=== PATIENT | female | born 1970 | race Caucasian/White ===

== ENCOUNTER → 2016-12-03 | Outpatient (CLI) | payer OTHER ==
[2016-12-03 17:59] LABS: Basophils % (A) 1 %; CH 30.2; CHCM 33.6; Eosinophils # (A) 0.2 k/uL (0-0.7); Eosinophils % (A) 3 %; HCT 38.7 % (34.0-46.0); HDW 2.67; Luc # (Auto) 0.25; Luc % (Auto) 3; Lymphocytes # (A) 2.1 k/uL (1.0-4.8); Lymphocytes % (A) 26 %; MCH 30.4 pg (25.0-35.0); MCHC 33.7 g/dL (31.0-37.0); MCV 90.3 fL (80.0-100.0); Mean Platelet Volume 6.4; Monocytes # (A) 0.6 k/uL (0-1.0); Monocytes % (A) 7 %; Neutrophils # (A) 4.9 k/uL (1.3-7.7); Neutrophils % (A) 61 %; RBC 4.29 m/uL (3.80-5.40); RDW 12.2 % (11.5-15.5); WBC (Perox) 8.08
== END | disposition home or self-care (01) ==
LOC: LABWHC1 17:15
PROVIDERS: ATTEND Obstetrics & Gynecology
DX: Z01.818 Encounter for other preprocedural examination (principal); N92.0 Excessive and frequent menstruation with regular cycle
CPT/HCPCS: 36415; 85025

== ENCOUNTER 2016-12-07 07:13 | Day surgery (SDC) | payer OTHER ==
[2016-12-07] MEDS ORDERED: LACTATED RINGERS 1,000 ML IV SCH ×2 (08:01→09:15)
[2016-12-07] MEDS ORDERED: LIDOCAINE 1% 20 ML VIAL (10MG/ML) FOR IV START INTRADERMA ONE (08:08)
[2016-12-07] MEDS ORDERED: DEXAMETHASONE SOD PHOSPHATE 10 MG/ML 1 ML VIAL IV ONE (08:09)
[2016-12-07] MEDS ORDERED: ONDANSETRON 4 MG/2 ML VIAL IVP ONE (08:10)
[2016-12-07] MEDS ORDERED: MIDAZOLAM 2 MG/2 ML VIAL ONE (08:43)
[2016-12-07] MEDS ORDERED: fentaNYL (PF) 50 MCG/ML 2 ML AMP ONE (08:43)
[2016-12-07] MEDS ORDERED: PROPOFOL 10 MG/ML 20 ML VIAL IV ONE (08:43)
[2016-12-07] MEDS ORDERED: LIDOCAINE 1% INJ 10MG/ML (20 ML MDV) ONE (08:43)
[2016-12-07] MEDS ORDERED: KETOROLAC 30 MG/ML 1 ML VIAL ONE (08:43)
[2016-12-07] MEDS ORDERED: diphenhydrAMINE 50 MG/ML 1 ML VIAL IVP PRN (09:10)
[2016-12-07] MEDS ORDERED: Acetaminophen-Codeine 300-30mg TAB PO PRN ×2 (09:10)
[2016-12-07] MEDS ORDERED: KETOROLAC 30 MG/ML 1 ML VIAL IVP PRN (09:10)
[2016-12-07] MEDS ORDERED: SIMETHICONE 80 MG CHEWABLE PO PRN (09:10)
[2016-12-07] MEDS ORDERED: METOCLOPRAMIDE 5 MG/ML 2 ML VIAL IVP PRN (09:10)
[2016-12-07] MEDS ORDERED: IBUPROFEN 600 MG TAB PO PRN (09:10)
[2016-12-07] MEDS ORDERED: ONDANSETRON 4 MG/2 ML VIAL IVP PRN (09:10)
[2016-12-07 09:17] VITALS: TEMP 97.2
--- NOTE | 2016-12-07 09:17 | P.OP ---
Date of Procedure: 12/07/16 Preoperative Diagnosis: #1. Menorrhagia Postoperative Diagnosis: Same Procedure(s) Performed: #1. Diagnostic hysteroscopy #2. NovaSure endometrial ablation Anesthesia: other (Gen. by facemask) Surgeon: Raymond Thibodeaux Estimated Blood Loss (ml): 5 IV fluids (ml): 250 Urine output (ml): 50 Pathology: none sent Condition: stable Disposition: PACU Operative Findings: Preoperative pelvic examination demonstrated a roughly 5 week anteverted mobile normal shaped uterus with normal adnexa bilaterally. Intraoperatively, the uterus sounded to 9 cm while the cervix measured approximate 4 cm. The settings for the NovaSure tool for a length of 5 cm, a width of 4 cm, a total power 110 W. A total run time of 103 seconds was carried out after which time the base unit read "procedure complete." The postprocedural result appeared to be excellent. She is a candidate for vaginal hysterectomy should it become necessary. Description of Procedure: The patient was prepped and draped in usual fashion after general anesthesia was administered by the anesthesiologist. A weighted speculum was placed and the anterior lip of the cervix was grasped with a single-tooth tenaculum after draining the bladder of approximately 50 mL of clear ondina urine. The uterus was sounded to 9 cm and the cervix to 4 cm as noted above. Serial dilation was carried out to admit the diagnostic hysteroscope. The hysteroscopic findings were able to identify the bilateral tubal ostia and there was no apparent pathology throughout the endometrial cavity. Once adequate hysteroscopy had been carried out, the scope was set aside and further dilation carried out to admit the NovaSure tool. The 2 was placed to the fundus of the uterus and seated well. The settings for the tool were as noted above. The cervix was sealed with the flange on the tool and the cavity check attempted and passed without difficulty. The tool was enabled and the run was started. After a total run time of 103 seconds, the base unit read "procedure complete.". The tool was closed, removed, and discarded. The diagnostic hysteroscope was replaced and the result appeared to be excellent. All instrumentation was removed. One tenaculum site was noted to be bleeding was made hemostatic with pressure. Estimated blood loss for the case was less than 5 mL. There were no complications. All sponge, instrument, and needle counts were correct. The patient tolerated the procedure well and proceeded to the recovery room in stable condition.
[2016-12-07] MEDS: HYDROmorphone 1 MG/ML 1 ML SYRINGE IVP ONE ×4 (09:27→09:48)
[2016-12-07] MEDS ORDERED: PROMETHAZINE INJ 25 MG/ML 1 ML VIAL IVP NR (11:00)
[2016-12-07 11:07] VITALS: RESP 16
[2016-12-07 12:09] VITALS: BP 106/73; PULSE 76
== END 2016-12-07 13:20 | disposition home or self-care (01) ==
LOC: OR 07:13
PROVIDERS: ATTEND Obstetrics & Gynecology
DX: N92.0 Excessive and frequent menstruation with regular cycle (principal); Z79.1 Long term (current) use of non-steroidal anti-inflammatories (NSAID); Z79.891 Long term (current) use of opiate analgesic; Z79.899 Other long term (current) drug therapy; Z87.891 Personal history of nicotine dependence
CPT/HCPCS: 84132; 58563; J2250; J1100; J2550; J2405; J2001; J3010; J1885; J1170; J2704

== ENCOUNTER → 2017-04-15 | Outpatient (CLI) | payer OTHER ==
[2017-04-15 11:02] LABS: Basophils # (A) 0.1 k/uL (0-0.2); Basophils % (A) 1 %; CH 29.6; CHCM 33.3; Eosinophils # (A) 0.2 k/uL (0-0.7); Eosinophils % (A) 2 %; HDW 2.52; HGB 14.2 gm/dL (11.4-16.0); Luc % (Auto) 3; Lymphocytes # (A) 1.9 k/uL (1.0-4.8); Lymphocytes % (A) 25 %; MCH 30.3 pg (25.0-35.0); MCHC 33.9 g/dL (31.0-37.0); MCV 89.4 fL (80.0-100.0); Mean Platelet Volume 6.4; Monocytes # (A) 0.4 k/uL (0-1.0); Monocytes % (A) 6 %; Neutrophils # (A) 4.9 k/uL (1.3-7.7); Neutrophils % (A) 64 %; RDW 12.7 % (11.5-15.5); WBC 7.6 k/uL (3.8-10.6); WBC (Perox) 7.85
[2017-04-15 11:12] LABS: Anion Gap 8 mmol/L; Blood Urea Nitrogen 10 mg/dL (7-17); Carbon Dioxide 29 mmol/L (22-30); Chloride 104 mmol/L (98-107); Glucose 89 mg/dL (74-99); Non-African American GFR(MDRD) >60 (>60 ml/min/1.73 sqM); Sodium 141 mmol/L (137-145)
[2017-04-15 11:19] LABS: Appearance,Urine Clear (Clear); Bilirubin,Urine Negative (Negative); Glucose,Urine (UA) Negative (Negative); Ketones,Urine Negative (Negative); Leukocyte Esterase,Urine Negative (Negative); Nitrite,Urine Negative (Negative); Protein,Urine Negative (Negative); Specific Gravity,Urine 1.003 (1.001-1.035); UA Billing (MACRO vs. MICRO) CHEM; Urobilinogen,Urine <2.0 mg/dL (<2.0)
== END | disposition home or self-care (01) ==
LOC: LABPAT 10:37
PROVIDERS: ATTEND Obstetrics & Gynecology
DX: Z01.812 Encounter for preprocedural laboratory examination (principal); N93.8 Other specified abnormal uterine and vaginal bleeding; N94.6 Dysmenorrhea, unspecified
CPT/HCPCS: 80051; 81003; 82565; 82947; 84520; 85025

== ENCOUNTER 2017-04-20 07:27 | Inpatient (IN) | payer OTHER ==
[2017-04-12 11:25] VITALS: BMI 30.1
--- NOTE | 2017-04-19 21:49 | HP ---
HISTORY OF PRESENT ILLNESS: Hannah is a 46 year old, 10, para 3, 4, 3, 6 who presented to the office with history of long standing issues of having irregular cycles as well as dysmenorrhea. She had a NovaSure endometrial ablation performed approximately four months ago, and since that time, continues to have bleeding through the procedure though it has significantly improved but not intractable and severe dysmenorrhea is present with the bleeding primarily and this is consistent with possibility of adenomyosis. The patient is not interested in child bearing and has had a tubal ligation in the past and has requested definitive treatment with hysterectomy. Her previous examinations have made her an obvious candidate for vaginal approach. PAST MEDICAL HISTORY: no significant history. SURGICAL HISTORY: Significant for placement of cervical cerclage on at least three separate occasions. She additionally had D&C for both elective and spontaneous AB. She has had hysteroscopy with NovaSure endometrial ablation in November 2016. She has had bilateral knee arthroscopy and then she underwent tubal ligation with Filshie clips as well. There were no anesthetic complications. OBSTETRICAL HISTORY: 10, para 3, 4, 3, 6 with three term vaginal deliveries, two of which required cerclage. She additionally had three 36 week deliveries with cerclage. .She additionally has had two miscarriages requiring D&C and one elective interruption of as well as a delivery that did not survive secondary to maturity. Method of contraception is tubal ligation. Again gynecological history is unremarkable with no history of any infections to include STDs. The remainder of her gynecological history is confined to the history of present illness. Family history is noncontributory. Social history: The patient is and is a nonsmoker though she did smoke in the past. She reports occasional alcohol, and denies any other social concerns. Current medications: 1. Cyclobenzaprine 10 mg twice day. 2. Hydrochlorothiazide 0.5 mg daily. 3. Motrin. 4. Homeland prn. 5. Xanax 1 mg prn. ALLERGIES: No known drug allergies. Review of systems is confined to history of present illness. PHYSICAL EXAMINATION: In general, this is a well developed, well nourished white female in no acute distress. HEENT: demonstrates PERRLA, EOMI, her oropharynx is clear. Neck is supple without adenopathy. Thyroid is normal to palpation. Her heart has regular rhythm and rate without murmur. Her lungs are clear to auscultation bilaterally in all pacheco. Her abdomen is nondistended and has normal active bowel sounds, is soft, nontender, without any palpable masses. Hepatosplenomegaly without any hernias. Her extremities without cyanosis, clubbing or edema and are nontender to palpation bilaterally. Bimanual pelvic examination demonstrates normal external genitalia and BUS with normal vaginal mucosa and cervix. There is no cervical motion tenderness. Uterus is approximately five weeks in size, anteverted, mobile, nontender and normal shaped uterus. There is adequate descensus for vaginal hysterectomy present. The adnexa are normal and nontender and without mass bilaterally. ASSESSMENT AND PLAN: Severe dysmenorrhea as well as functional uterine bleeding , failed endometrial ablation: We discussed other potential interventions but the patient has requested definitive therapy with hysterectomy. She is a candidate for a vaginal approach. The risks and complications of vaginal hysterectomy were thoroughly discussed including the risk of bleeding, bleeding requiring transfusion, infection, and injury to local structures to specifically include the bowel, bladder and ureters. I also discussed the typical hospital and postoperative courses. She understood all of these concerns and agrees to proceed. We are scheduled for vaginal hysterectomy on the morning of April 20, 2017. SEBASTIEN
[~2017-04-20 07:27] MED LIST: DEXAMETHASONE SOD PHOSPHATE 10 MG/ML 1 ML VIAL IV ONE; LIDOCAINE 1% 20 ML VIAL (10MG/ML) FOR IV START INTRADERMA PRN; ONDANSETRON 4 MG/2 ML VIAL IVP ONE; SCOPOLAMINE 1.5MG/72HR PATCH TRANSDERM ONE; ceFAZolin 2 GM in SODIUM CHLORIDE 0.9% 100 ML IVPB ONE
[2017-04-20] MEDS: LACTATED RINGERS 1,000 ML IV SCH ×3 (07:58→11:11)
[2017-04-20] MEDS ORDERED: MIDAZOLAM 2 MG/2 ML VIAL IVP ONE (08:36)
[2017-04-20] MEDS ORDERED: GLYCOPYRROLATE 0.2 MG/ML 2 ML VIAL ONE (09:22)
[2017-04-20] MEDS ORDERED: MIDAZOLAM 2 MG/2 ML VIAL ONE (09:22)
[2017-04-20] MEDS ORDERED: HYDROmorphone (PF) 1 MG/ML ONE (09:22)
[2017-04-20] MEDS ORDERED: NEOSTIGMINE 1 MG/ML 10 ML VIAL ONE (09:22)
[2017-04-20] MEDS ORDERED: SUCCINYLCHOLINE CHLORIDE 100 MG/5 ML SYR IV ONE (09:22)
[2017-04-20] MEDS ORDERED: PROPOFOL 10 MG/ML 20 ML VIAL IV ONE (09:22)
[2017-04-20] MEDS ORDERED: ROCURONIUM BROMIDE 10 MG/ML 10 ML VIAL IV ONE (09:22)
[2017-04-20] MEDS ORDERED: fentaNYL (PF) 50 MCG/ML 2 ML AMP ONE (09:22)
[2017-04-20] MEDS ORDERED: LIDOCAINE 1% INJ 10MG/ML (20 ML MDV) ONE (09:22)
[2017-04-20] MEDS ORDERED: diphenhydrAMINE 50 MG/ML 1 ML VIAL IVP PRN (09:30)
[2017-04-20] MEDS ORDERED: IBUPROFEN 600 MG TAB PO PRN (09:30)
[2017-04-20] MEDS ORDERED: SIMETHICONE 80 MG CHEWABLE PO PRN (09:30)
[2017-04-20] MEDS ORDERED: Acetaminophen-Codeine 300-30mg TAB PO PRN ×2 (09:30)
[2017-04-20] MEDS ORDERED: HYDROmorphone PCA 5 MG/25 ML SYRINGE IV PRN (09:33)
[2017-04-20] MEDS ORDERED: NALOXONE 0.4 MG/ML 1 ML VIAL IV PRN (09:33)
[2017-04-20] MEDS ORDERED: VASOPRESSIN 20 UNIT/ML 1 ML VIAL SQ ONE (09:51)
[2017-04-20] MEDS ORDERED: BACITRACIN 500 UNIT/GM OINT 28.4 GM TUBE TOPICAL ONE (09:51)
--- NOTE | 2017-04-20 10:29 | P.OP ---
Date of Procedure: 04/20/17 Preoperative Diagnosis: #1. Severe dysmenorrhea #2. Dysfunctional uterine bleeding #3. Failed endometrial ablation Postoperative Diagnosis: Same Procedure(s) Performed: #1. Vaginal hysterectomy Implants: Anesthesia: JASON Surgeon: Raymond Thibodeaux Movie Star #1: Taty Gutierrez Estimated Blood Loss (ml): 50 IV fluids (ml): 650 Urine output (ml): 200 Pathology: other (Uterus) Condition: stable Disposition: PACU Indications for Procedure: Operative Findings: Preoperative pelvic examination confirmed an essentially normal shaped uterus though there was less descensus than initially appreciated in the office. Intraoperatively, the bilateral tubes and ovaries were normal and a Filshie clip was seen on each fallopian tube. There was a roughly 2-3 cm left ovarian cyst which was benign in nature and left alone. The capsule of the left ovary was bleeding slightly was cauterized intraoperatively. Description of Procedure: The patient was prepped and draped in usual fashion after general endotracheal anesthesia was administered by the anesthesiologist. A weighted speculum was placed and the cervix grasped with a double-tooth tenaculum. The bladder was drained of approximately 200 cc of clear ondina urine. The cervicovaginal mucosa was infused with diluted vasopressin solution. It was then opened at the cervicovaginal junction sharply with a scalpel. Blunt and sharp dissection utilized to sweep it further back. The posterior cul-de-sac was identified and incised sharply with the Dobbins scissors. A stitch of 2-0 Vicryl was placed for later use. The short weighted speculum was replaced with a long weighted speculum. Once adequate dissection of the mucosa had been carried out, the uterosacral ligament were clamped with curved Wes-Iola clamps, cut, and suture-ligated with a transfixion stitch of 0 Vicryl. Serial bites were taken up the cardinal ligament towards the utero-ovarian pedicles on each side using curved Avis Iola clamps. Each was cut and suture-ligated with a transfixion stitch of 0 Vicryl. After several bites on either side, the uterus was inverted posteriorly and the anterior peritoneum identified and opened sharply. This allowed isolation of the utero-ovarian pedicle on each side. Each was clamped with a curved Wes-Iola clamp, cut, and suture-ligated with a transfixion stitch of 0 Vicryl followed by a free tie of 0 Vicryl. Each was carefully examined with no ongoing bleeding prior to its release. The left ovary was visible within the field with a roughly 2-3 cm deflated cyst present. The capsule over the cyst was some slightly opened then bleeding. It was made hemostatic with the Bovie. The right ovary was entirely normal to inspection. The bilateral Filshie clips were seen on each tube. The long weighted speculum was then replaced the short weighted speculum. The previously placed stitch of 2-0 Vicryl was utilized to close the parietal peritoneum in a pursestring stitch. The pedicles were examined and found to be hemostatic. The uterosacral ligament was were passed through each other contralaterally and the vaginal mucosa in a modified Mendez's culdoplasty and firmly tied down. The intervening open vaginal mucosa was closed with interrupted [id number] stitches of 0 Vicryl. Any small points of bleeding or exposed subcutaneous tissues were cauterized to keep granulation tissue from forming. Hemostasis appeared excellent. The Jolly catheter was then placed demonstrating clear ondina urine. The vagina was packed with one-inch iodophor gauze covered with bacitracin ointment. All instrumentation was then removed. Estimated blood loss for the entire case was approximately 50 mL. All sponge, instrument, and needle counts were correct. There were no complications. The patient tolerated the procedure well and proceeded to the recovery room in stable condition.
[2017-04-20] MEDS: KETOROLAC 30 MG/ML 1 ML VIAL IVP PRN ×2 (11:00→18:45)
[2017-04-20] MEDS: HYDROmorphone 1 MG/ML 1 ML SYRINGE IVP PRN ×4 (11:00→11:23)
[2017-04-20] MEDS: ONDANSETRON 4 MG/2 ML VIAL IVP PRN ×2 (13:18→21:19)
[2017-04-20] MEDS: METOCLOPRAMIDE 5 MG/ML 2 ML VIAL IVP PRN (18:46)
[2017-04-21] MEDS: SENNOSIDES-DOCUSATE SODIUM 1 EACH TAB PO SCH ×3 (00:13→20:52)
[2017-04-21] MEDS: KETOROLAC 30 MG/ML 1 ML VIAL IVP PRN (01:59)
[2017-04-21] MEDS ORDERED: RX INFO: IV CONTRAST WAS GIVEN 1 EACH MISC MISCELLANE PRN ×2 (02:34→15:28)
[2017-04-21] MEDS ORDERED: ACETAMINOPHEN IV (For NPO) 1,000 MG in EMPTY BAG 1 BAG IVPB ONE (03:04)
[2017-04-21 03:06] LABS: Basophils % (A) 0 %; CH 29.4; CHCM 32.9; Eosinophils % (A) 0 %; HCT 28.3 % (34.0-46.0); HDW 2.58; Luc # (Auto) 0.14; Luc % (Auto) 1; Lymphocytes # (A) 1.1 k/uL (1.0-4.8); Lymphocytes % (A) 6 %; MCH 29.6 pg (25.0-35.0); MCHC 32.9 g/dL (31.0-37.0); MCV 89.9 fL (80.0-100.0); Mean Platelet Volume 6.6; Monocytes # (A) 1.2 k/uL (0-1.0); Monocytes % (A) 7 %; Neutrophils # (A) 15.6 k/uL (1.3-7.7); Neutrophils % (A) 86 %; RBC 3.15 m/uL (3.80-5.40); RDW 12.8 % (11.5-15.5); WBC 18.1 k/uL (3.8-10.6); WBC (Perox) 19.42
[2017-04-21 03:09] LABS: HGB 9.3 gm/dL (11.4-16.0)
[2017-04-21 03:15] LABS: INR 1.1 (<1.2); Prothrombin Time 10.9 sec (9.0-12.0)
[2017-04-21 03:17] LABS: ALT 21 U/L (9-52); AST 17 U/L (14-36); Alkaline Phosphatase 41 U/L (38-126); Anion Gap 10 mmol/L; Blood Urea Nitrogen 19 mg/dL (7-17); Calcium 8.4 mg/dL (8.4-10.2); Carbon Dioxide 21 mmol/L (22-30); Chloride 103 mmol/L (98-107); Glucose 159 mg/dL (74-99); Non-African American GFR(MDRD) >60 (>60 ml/min/1.73 sqM); Potassium 4.8 mmol/L (3.5-5.1); Sodium 134 mmol/L (137-145); Total Bilirubin 0.4 mg/dL (0.2-1.3); Total Protein 5.5 g/dL (6.3-8.2)
[2017-04-21] MEDS ORDERED: SODIUM CHLORIDE 0.9% 1,000 ML IV ONE ×3 (04:14→09:47)
[2017-04-21] MEDS: SODIUM CHLORIDE 0.9% 1,000 ML IV SCH ×2 (04:42→12:15)
--- NOTE | 2017-04-21 04:44 | CT ---
EXAM: CT Angiography Chest With Intravenous Contrast CLINICAL HISTORY: Reason: r/o PE TECHNIQUE: Axial computed tomographic angiography images of the chest with intravenous contrast using pulmonary embolism protocol. CTDI is 66.6 mGy and DLP is 420.00 mGy-cm. This CT exam was performed using one or more of the following dose reduction techniques: automated exposure control, adjustment of the mA and/or kV according to patient size, and/or use of iterative reconstruction technique. MIP reconstructed images were created and reviewed. COMPARISON: No relevant prior studies available. FINDINGS: Pulmonary arteries: Unremarkable. No definitive evidence of pulmonary embolism. Aorta: No acute findings. No thoracic aortic aneurysm. Lungs: Small bilateral pleural effusions are seen resulting in compressive atelectasis of the both lower lobes. Linear atelectatic changes are also seen involving both lower lobes. Cannot definitively exclude the possibility of superimposed infection. No mass. Pleural space: See above. Heart: Unremarkable. No cardiomegaly. No significant pericardial effusion. No evidence of RV dysfunction. Bones/joints: No acute fracture. No dislocation. Soft tissues: Unremarkable. Lymph nodes: Unremarkable. No enlarged lymph nodes. Intraperitoneal space: Small/moderate amount of ascites is visualized in the upper abdomen. IMPRESSION: 1. Small bilateral pleural effusions are seen resulting in compressive atelectasis of the both lower lobes. Linear atelectatic changes are also seen involving both lower lobes. Cannot definitively exclude the possibility of superimposed infection. Clinical correlation recommended. 2. Small/moderate amount of ascites is visualized in the upper abdomen. 3. No definitive evidence of pulmonary embolism in this setting.
--- NOTE | 2017-04-21 04:56 | US ---
EXAM: US Duplex Bilateral Lower Extremity Veins CLINICAL HISTORY: Reason: r/o DVT TECHNIQUE: Real-time ultrasound scan of the veins of the bilateral lower extremities with color Doppler flow, spectral waveform analysis and compression. COMPARISON: No relevant prior studies available. FINDINGS: Right deep veins: Unremarkable. No DVT in the right common femoral, femoral, proximal deep femoral or popliteal veins. The veins are compressible with normal color flow and augmentation. Right superficial veins: Unremarkable. No thrombus in the visualized right great saphenous vein. Left deep veins: Unremarkable. No DVT in the left common femoral, femoral, proximal deep femoral or popliteal veins. The veins are compressible with normal color flow and augmentation. Left superficial veins: Unremarkable. No thrombus in the visualized left great saphenous vein. Soft tissues: No acute findings. No popliteal cyst. IMPRESSION: Normal bilateral lower extremity duplex venous ultrasound.
[2017-04-21] MEDS ORDERED: ONDANSETRON 4 MG/2 ML VIAL IVP PRN (05:06)
[2017-04-21] MEDS: MORPHINE SULFATE 2 MG/ML SYRINGE IVP PRN ×2 (05:21→07:54)
[2017-04-21] MEDS: LACTATED RINGERS 1,000 ML IV SCH ×3 (05:40→16:33)
[2017-04-21] MEDS ORDERED: HYDROcodone/APAP 5-325MG 1 EACH TAB PO PRN (05:50)
[2017-04-21] MEDS: ALPRAZolam 0.5 MG TAB PO PRN (06:09)
[2017-04-21] MEDS: METOCLOPRAMIDE 5 MG/ML 2 ML VIAL IVP PRN ×3 (06:09→21:57)
[2017-04-21] MEDS ORDERED: MORPHINE PCA 30 MG/30 ML SYRINGE IV PRN (08:47)
--- NOTE | 2017-04-21 08:53 | P.PN ---
Subjective Ports significant abdominal pain, primarily in the upper bilateral quadrants which makes it difficult for her to take a deep breath. She has undergone testing for PE which was negative. She denies flatus at this time and has not been up or active yet. She also reports that she feels the Dilaudid is creating nausea as does most oral narcotic pain medication. She reports that she has done well on IV morphine in the past. Objective - Vital Signs Vital signs: Vital Signs Temp 97.4 F L 04/21/17 07:51 Pulse 98 04/21/17 07:51 Resp 16 04/21/17 07:51 BP 123/57 04/21/17 07:51 Pulse Ox 100 04/21/17 07:51 Intake & Output 04/20/17 04/21/17 04/21/17 18:59 06:59 18:59 Intake Total 1125 1600 Output Total 650 300 Balance 475 1300 Intake: IV 1125 Intake, IV Titration 1200 Amount Sodium Chloride 0.9% 1, 200 000 ml @ 100 mls/hr IV . Q10H KIMBERLY Rx#:[id number] Sodium Chloride 0.9% 1, 1000 000 ml @ 999 mls/hr IV . Q1H1M ONE Rx#:[id number] Oral 400 Output: Urine 600 300 Estimated Blood Loss 50 Other: Voiding Method Indwelling Catheter Indwelling Catheter - Exam In general, this is a well-developed well-nourished white female in some discomfort. Her abdomen is nondistended, soft, with moderate bilateral upper quadrant abdominal tenderness and less tenderness and the bilateral lower quadrants. Her extremities are without any cyanosis, clubbing, or edema and are nontender to palpation. - Labs CBC & Chem 7: 04/21/17 02:46 04/21/17 02:46 Labs: Abnormal Lab Results - Last 24 Hours (Table) 04/21/17 04/21/17 04/21/17 Range/Units 02:46 02:46 02:46 WBC 18.1 H (3.8-10.6) k/uL RBC 3.15 L (3.80-5.40) m/uL Hgb 9.3 L D (11.4-16.0) gm/dL Hct 28.3 L (34.0-46.0) % Neutrophils # 15.6 H (1.3-7.7) k/uL Monocytes # 1.2 H (0-1.0) k/uL D-Dimer 0.71 H (<0.60) mg/L FEU Sodium 134 L (137-145) mmol/L Carbon Dioxide 21 L (22-30) mmol/L BUN 19 H (7-17) mg/dL Glucose 159 H (74-99) mg/dL Plasma Lactic Acid Beau (0.7-2.0) mmol/L Total Protein 5.5 L (6.3-8.2) g/dL Albumin 3.4 L (3.5-5.0) g/dL 04/21/17 04/21/17 Range/Units 02:50 06:25 WBC (3.8-10.6) k/uL RBC (3.80-5.40) m/uL Hgb (11.4-16.0) gm/dL Hct (34.0-46.0) % Neutrophils # (1.3-7.7) k/uL Monocytes # (0-1.0) k/uL D-Dimer (<0.60) mg/L FEU Sodium (137-145) mmol/L Carbon Dioxide (22-30) mmol/L BUN (7-17) mg/dL Glucose (74-99) mg/dL Plasma Lactic Acid Beau 2.6 H* 2.3 H* (0.7-2.0) mmol/L Total Protein (6.3-8.2) g/dL Albumin (3.5-5.0) g/dL Assessment and Plan (1) Dysfunctional uterine bleeding Status: Acute (2) Dysmenorrhea Status: Acute Plan: The pain the patient is reporting is consistent with possible abdominal wall muscle strain but is somewhat unclear. In either case, I will discontinue her Dilaudid PRICING LEAD in favor of a morphine PRICING LEAD. We will continue with clear liquids at this time await flatus to advance diet. A consultation with general medicine has been called to evaluate for other potential medical concerns. I did also add Xanax as the patient apparently takes this at home on occasion though at this time she denies any significant anxiety. Repeat CBC will be ordered for the morning as well.
--- NOTE | 2017-04-21 12:25 | P.CONS ---
History of Present Illness - Reason for Consult Consult date: 04/21/17 medical management of abd pain Requesting physician: Raymond Thibodeaux - Chief Complaint Diffuse abd pain post op - History of Present Illness 46-year-old female with no significant past medical history she presented to the hospital for an elective vaginal hysterectomy. Patient had long standing history of irregular menstrual cycle and dysmenorrhea. She underwent endometrial ablation back in November 2016 however since that time she continued to have vaginal bleeding which was suspicious for adenomyosis. Patient was further evaluated by her [employer] doctor and they both agreed on hysterectomy as the patient has expressed no interest in having more kids. Patient is seen today postoperative day #1 post vaginal approach hysterectomy which she tolerated well, however medical consult was requested due to persistent abdominal pain. Patient reports diffuse abdominal pain mainly epigastric described it as sharp 10 out of 10 in severity continuous pain aggravated by movement and deep breaths associated with nausea but no vomiting, however she feels that the nausea was due to IV Dilaudid. She reports no similar pain in the past. She denies any cough, chest pain, or shortness of breath however she is experiencing shallow breaths due to fear of pain in her belly. Patient denies any GI bleeding, coffee-ground vomiting, she reports that she has not passed bowel movement yet. She has a Jolly catheter which is draining clear yellow urine. Patient otherwise denying any dizziness or headaches changes in her vision or hearing however she feels generalized fatigue and tiredness. Patient has not been up and moving at and being confined to bed since the post surgery. Patient continues to have clear liquids by mouth and tolerating that well however she reports poor appetite. She denies any history of liver disease, pancreatic problems, peptic ulcer disease, denies any pneumonia symptoms of coughing or pleuritic chest pain. Denies any fevers or chills. In the postoperative period due to her experiencing some shallow breaths and pleuritic chest pain earlier a d-dimer was performed which came back positive upon which CT angiogram chest was done which was negative for any pulmonary embolism however suggested bilateral minimal pleural effusion and some and suggested some minimal ascites in the upper abdomen bilaterally, venous duplex ultrasound of the lower extremities was performed and showed no evidence of acute DVT. Patient currently reports that the pain is controlled with morphine, she is receiving IV fluid and tolerating clear liquids. Review of Systems Pertinent positives as noted in HPI. All other systems were reviewed and are negative Past Medical History Past Medical History: Cancer Additional Past Medical History / Comment(s): HAVING SPOTTING AND CRAMPING SINCE ABLATION, HX OF CERVICAL CA post LEEP , STATES TAKES HCTZ FOR BLOATING NO HTN ISSUES, Gestational diabetes History of Any Multi-Drug Resistant Organisms: None Reported Past Surgical History: Orthopedic Surgery, Tubal Ligation Additional Past Surgical History / Comment(s): KNEE ARTHROSCOPY; MULTIPLE CIRCLAGE; ABLATION WITH NOVASURE Past Anesthesia/Blood Transfusion Reactions: No Reported Reaction Past Psychological History: No Psychological Hx Reported Smoking Status: Former smoker Past Alcohol Use History: Occasional Additional Past Alcohol Use History / Comment(s): QUIT SMOKING 2005, SMOKED 1PPD FROM TEENS Past Drug Use History: None Reported - Past Family History Mother Family Medical History: No Reported History Additional Family Medical History / Comment(s): grandmother with skin cancer, grandfather with heart disease Medications and Allergies Home Medications and Allergies Comment(s): Reviewed Home Medications Medication Instructions Recorded Confirmed Type Hydrochlorothiazide [Hydrodiuril] 12.5 mg PO DAILY 12/07/16 04/21/17 History Ibuprofen [Motrin] 800 mg PO Q8HR PRN 12/07/16 04/21/17 History Vitamin E 1,000 unit PO DAILY 12/07/16 04/21/17 History Allergies Allergy/AdvReac Type Severity Reaction Status Date / Time SURGICAL SCRUB Allergy Rash/Hives Uncoded 04/20/17 15:30 Physical Exam Vitals: Vital Signs Temp Pulse Resp BP BP Pulse Ox 04/21/17 07:51 97.4 F L 98 16 123/57 100 04/21/17 06:00 97.8 F 103 H 16 119/60 99 04/21/17 04:15 97.4 F L 109 H 128/64 100 04/21/17 02:42 101 H 24 135/58 100 04/21/17 02:25 102 H 24 124/56 100 04/21/17 00:05 97.3 F L 88 18 127/69 100 04/21/17 00:00 88 20 04/20/17 20:25 96.9 F L 88 20 112/62 100 04/20/17 19:47 80 16 04/20/17 16:25 97.4 F L 84 16 100 04/20/17 15:25 79 16 91/51 99 04/20/17 14:25 93 18 88/54 100 04/20/17 13:25 90 18 90/52 99 04/20/17 12:55 78 18 118/67 99 04/20/17 12:25 68 18 110/58 99 04/20/17 12:22 98 04/20/17 12:10 67 18 110/73 99 04/20/17 11:55 79 19 103/64 100 04/20/17 11:40 98.6 F 50 L 19 111/62 100 04/20/17 11:15 81 16 122/65 998 H Intake and Output 04/20/17 04/21/17 04/21/17 22:59 06:59 14:59 Intake Total 400 1200 120 Output Total 300 200 Balance 100 1000 120 Intake: Intake, IV Titration 1200 Amount Sodium Chloride 0.9% 1, 200 000 ml @ 100 mls/hr IV . Q10H [facility] Rx#:[id number] Sodium Chloride 0.9% 1, 1000 000 ml @ 999 mls/hr IV . Q1H1M ONE Rx#:[id number] Oral 400 120 Output: Urine 300 200 Other: Voiding Method Indwelling Catheter Indwelling Catheter Indwelling Catheter Constitutional: No acute distress, conversant, pleasant I can Eyes: Anicteric sclerae, moist conjunctiva, no lid-lag Pupils equal round reactive to light ENMT: NC/AT Oropharynx clear, no erythema, exudates Neck: Supple, FROM, no masses, or JVD No carotid bruits No thyromegaly Lungs: Clear to auscultation except for right lung base, which could be due to poor effort from the patient due to abd pain vs the minimal pleural effusion on that side Clear to percussion No accessory muscle use, but poor effort and shallow breathing Cardiovascular: Heart regular in rate and rhythm, + Systolic murmur, No gallops, or rubs No peripheral edema Abdominal: Soft, but with voluntary guarding. tenderness to deep palpation and percussion throughout, no rebound tenderness, bowel sounds are positive Normoactive bowel sounds No hepatomegaly, No splenomegaly No palpable mass No abdominal wall hernia noted Skin: Normal temperature, tone, texture, turgor No induration No subcutaneous nodules No rash, lesions No ulcers Extremities: No digital cyanosis No clubbing Pedal pulses intact and symmetrical Radial pulses intact and symmetrical No calf tenderness , SCDs in place Psychiatric: Alert and oriented to person, place and time Appropriate affect fair judgment Neuro Muscles Strength grossly intact in all 4 extremities Sensation to light touch grossly present throughout Cranial nerves II-XII grossly intact No focal sensory deficits Lymphatics: no palpable cervical or supraclavicular , or inguinal lymph nodes Results Results: reviewed CBC & Chem 7: 04/21/17 16:21 04/21/17 13:42 Labs: Abnormal Lab Results - Last 24 Hours (Table) 04/21/17 04/21/17 04/21/17 Range/Units 02:46 02:46 02:46 WBC 18.1 H (3.8-10.6) k/uL RBC 3.15 L (3.80-5.40) m/uL Hgb 9.3 L D (11.4-16.0) gm/dL Hct 28.3 L (34.0-46.0) % Neutrophils # 15.6 H (1.3-7.7) k/uL Monocytes # 1.2 H (0-1.0) k/uL D-Dimer 0.71 H (<0.60) mg/L FEU Sodium 134 L (137-145) mmol/L Carbon Dioxide 21 L (22-30) mmol/L BUN 19 H (7-17) mg/dL Glucose 159 H (74-99) mg/dL Plasma Lactic Acid Beau (0.7-2.0) mmol/L Total Protein 5.5 L (6.3-8.2) g/dL Albumin 3.4 L (3.5-5.0) g/dL 04/21/17 04/21/17 Range/Units 02:50 06:25 WBC (3.8-10.6) k/uL RBC (3.80-5.40) m/uL Hgb (11.4-16.0) gm/dL Hct (34.0-46.0) % Neutrophils # (1.3-7.7) k/uL Monocytes # (0-1.0) k/uL D-Dimer (<0.60) mg/L FEU Sodium (137-145) mmol/L Carbon Dioxide (22-30) mmol/L BUN (7-17) mg/dL Glucose (74-99) mg/dL Plasma Lactic Acid Beau 2.6 H* 2.3 H* (0.7-2.0) mmol/L Total Protein (6.3-8.2) g/dL Albumin (3.5-5.0) g/dL Assessment and Plan (1) Abdominal pain Status: Acute (2) Postoperative anemia due to acute blood loss Status: Acute (3) Lactic acidosis Status: Acute (4) D-dimer, elevated Status: Acute (5) DVT prophylaxis Status: Acute (6) Hyperglycemia Status: Acute Plan: Abdominal pain is most likely secondary to postoperative however check acute abdominal series x-ray to rule out air leaks secondary to surgery Aggressive IV fluid hydration (give another bolus of NS and increase NS rate to 140 cc/hour) , recheck lactic acid levels, if this continues to rise I will consider computed tomography scan of the abdomen and pelvis with and without contrast rule out any vascular compromise Patient was encouraged to ambulate, will monitor for passing gases and bowel movement Patient encouraged to set up on a chair and use the incentive spirometer which will help with lung expansion pain control with morphine which patient tolerates better Postoperative anemia, check iron studies, patient with prolonged history of irregular menstrual bleed Elevated d-dimer most likely secondary to tissue injury from surgery, CT angiogram chest duplex venous ultrasound of lower extremities both negative Monitor liver and renal function in the morning continue to monitor hemoglobin levels Check A1c patient has history of gestational diabetes and currently with hyperglycemia, insulin sliding scale could be utilized and optimizing control of blood sugar DVT PPX with SCDs, consider pharmacologic DVT ppx when ok with psych patient reported being on HCTz for bloating without history of HTN. I agree with holding this medicine. Thank you for allowing us to participate in the care of this patient. We will follow up closely along with you. Do not hesitate to contact us with questions. Someone can be reached from the [facility] [place] hospitalist group at all hours of the day at [phone]. Interval evaluation around 1400 and 16:45 due to trending down hemoglobin and tachycardia. on exam patient was alert and awake, reports abd pain however she thinks its improving compared to before. I repeated stat hemoglobin to r/o hemodilution and showed even worse Hgb at 7.0 , I discussed the case with [employer] at bedside, and there is high possibility of small blood vessel oozing blood that could be self limited. will do close monitoring of hemoglobin, CT scan to r/o any retroperitoneal bleed , serial hemoglobin, type and cross match 2 units blood standby. if hemoglobin drops further , and /or vital signs becomes unstable, then transfuse blood, and [employer] will take patient back to OR in AM. RN was notified of the plan, patient and her family notified, questions answered and she verbalized understanding. 35 minutes were spent in critical care management for this complex patient with suspected internal bleed.
[2017-04-21] MEDS: INSULIN LISPRO (humaLOG) 300 UNIT/3 ML VIAL SQ SCH ×3 (12:33→20:52)
[2017-04-21 13:53] LABS: Basophils % (A) 0 %; CH 29.3; CHCM 32.7; Eosinophils # (A) 0.1 k/uL (0-0.7); Eosinophils % (A) 1 %; HCT 21.6 % (34.0-46.0); HDW 2.62; Luc # (Auto) 0.19; Luc % (Auto) 2; Lymphocytes # (A) 2.1 k/uL (1.0-4.8); Lymphocytes % (A) 16 %; MCH 30.4 pg (25.0-35.0); MCHC 33.8 g/dL (31.0-37.0); MCV 90.1 fL (80.0-100.0); Mean Platelet Volume 6.6; Monocytes % (A) 8 %; Neutrophils # (A) 9.6 k/uL (1.3-7.7); Neutrophils % (A) 74 %; RBC 2.39 m/uL (3.80-5.40); RDW 12.9 % (11.5-15.5); WBC 13.1 k/uL (3.8-10.6); WBC (Perox) 13.89
[2017-04-21 13:59] LABS: HGB 7.3 gm/dL (11.4-16.0)
--- NOTE | 2017-04-21 16:02 | XR ---
EXAMINATION TYPE: XR abdomen acute w cxr DATE OF EXAM: 04/21/2017 COMPARISON: 04/21/2017 CT thorax. HISTORY: Abdominal pain, postop rule out air leak versus postsurgical. TECHNIQUE: Upright and supine abdominal radiograph's were obtained as well as single frontal chest r adiograph. FINDINGS: No focal consolidation, pleural effusion or pneumothorax. Cardiac silhouette is within normal limits. Prominent superior mediastinum related to pulmonary vasculature in comparison to the recent CT. Osse ous structures appear intact. There is no evidence for pneumoperitoneum. The bowel gas pattern is unremarkable as there is air throughout nondilated small and large bowel. No sizeable air fluid levels. No mass effects are seen. No unusual calcifications. Tubal ligation clips are noted within the pelvis. IMPRESSION: No visible pneumoperitoneum. No acute cardiopulmonary or intra-abdominal pathology.
[2017-04-21 16:16] LABS: Anion Gap 6 mmol/L; Blood Urea Nitrogen 17 mg/dL (7-17); Calcium 7.6 mg/dL (8.4-10.2); Carbon Dioxide 24 mmol/L (22-30); Chloride 106 mmol/L (98-107); Glucose 106 mg/dL (74-99); Non-African American GFR(MDRD) >60 (>60 ml/min/1.73 sqM); Potassium 4.3 mmol/L (3.5-5.1); Sodium 136 mmol/L (137-145)
[2017-04-21 16:34] LABS: CH 30.6; CHCM 34.2; HCT 21.1 % (34.0-46.0); HDW 2.62; MCH 29.7 pg (25.0-35.0); Mean Platelet Volume 7.6; RBC 2.35 m/uL (3.80-5.40); RDW 13.4 % (11.5-15.5); WBC 12.7 k/uL (3.8-10.6)
[2017-04-21 16:50] LABS: Glucose,Whole Blood 123 mg/dL (75-99)
--- NOTE | 2017-04-21 17:16 | P.PN ---
Progress Note - Text Patient has undergone serial CBC and hemoglobin has noted to be continuing to decline. Most recent hemoglobin is in the range of 7.0. She denies any significant symptomatology but has not been up. Vital signs are stable though she is borderline tachycardic. She denies any significant increase in pain and actually feels that her pain has improved. Most of her pain is in her upper abdomen, not lower abdomen. She continues to have some mild nausea. She is tolerating clear liquids though has not tried any solids. Objective: Her abdomen is nondistended, soft, with mild bilateral upper quadrant tenderness and minimal lower quadrant tenderness. There is no guarding or rebound. Assessment and plan: #1. Postoperative day #1: The patient appears to have had some internal bleeding following the surgery. I discussed the case with she and her significant other as well as internal medicine. It is possible her bleeding will be self-limited. As a result, we will repeat a CBC at 2000 hrs. If her hemoglobin is stable, we will repeat the CBC in the morning. If it has decreased significantly or if vital signs warrant, she will have 2 units of packed red blood cells crossed and transfused with the anticipation of proceeding to the operating room for diagnostic laparoscopy.
--- NOTE | 2017-04-21 18:13 | CT ---
EXAMINATION TYPE: CT abdomen pelvis wo/w con DATE OF EXAM: 04/21/2017 COMPARISON: NONE HISTORY: post op abdominal pain CT DLP: 2460 mGycm Automated exposure control for dose reduction was used. TECHNIQUE: Helical acquisition of images was performed from the lung bases through the pelvis. CONTRAST: Performed without Oral Contrast and with IV Contrast, patient injected with 100 mL of Omnipaque 300. FINDINGS: There are bilateral pleural effusions with basilar pulmonary infiltrates and atelectasis. Heart appea rs enlarged. There is free fluid in the abdomen. There are clips from tubal ligation. There is high attenuation in the gallbladder consistent with vicarious contrast excretion. There is s ome contrast in the renal collecting systems. This patient had a CT angiogram earlier today. There is no focal liver defect. Spleen has normal size. There is no pancreatic mass. I see no evidence of a bowel obstruction. There is no sign of free air. There is a Jolly catheter in the urinary bladder which is empty. There is high attenuation material i n the pelvis which is not within the bowel. The bony structures are intact. IMPRESSION: THERE IS HIGH ATTENUATION MATERIAL IN THE PELVIS WHICH COULD BE INTRAPERITONEAL HEMORRHAGE OR IV CONT RAST EXTRAVASATION FROM THE CONTRAST INJECTION EARLIER TODAY. IS THERE SUSPICION OF A BLADDER LEAK? T HERE IS SIGNIFICANT FREE FLUID IN THE PARACOLIC GUTTERS. BILATERAL BASILAR PULMONARY INFILTRATES AND ATELECTASIS. CARDIOMEGALY.
--- NOTE | 2017-04-21 19:29 | P.PN ---
Progress Note - Text I saw the patient again @ 1900 CT abd /pelvis results reviewed and results reported to the patient with my suspicion of internal bleed as discussed before, discussed with RN Darline charge Nurse, who notified Dr. Thibodeaux who was made aware of results of CT and recommended close monitoring of patient vital signs with a repeat CBC at 1999 pending further recommendations based on results 2 units of blood on stand by
[2017-04-21 20:26] LABS: CH 29.1; CHCM 32.8; HDW 2.68; MCH 30.3 pg (25.0-35.0); MCHC 33.9 g/dL (31.0-37.0); MCV 89.3 fL (80.0-100.0); Mean Platelet Volume 6.8; RDW 13.2 % (11.5-15.5); WBC 11.7 k/uL (3.8-10.6)
[2017-04-21 20:28] LABS: HCT 18.7 % (34.0-46.0); HGB 6.4 gm/dL (11.4-16.0)
[2017-04-21 20:46] LABS: Glucose,Whole Blood 115 mg/dL (75-99)
[2017-04-22] MEDS: SODIUM CHLORIDE 0.9% 1,000 ML IV SCH ×5 (00:53→18:01)
[2017-04-22] MEDS: LACTATED RINGERS 1,000 ML IV SCH ×2 (00:53→11:56)
[2017-04-22] MEDS ORDERED: ACETAMINOPHEN TAB 325 MG TAB PO STA (01:17)
[2017-04-22] MEDS: ALPRAZolam 0.5 MG TAB PO PRN (01:27)
[2017-04-22] MEDS: INSULIN LISPRO (humaLOG) 300 UNIT/3 ML VIAL SQ SCH ×4 (06:07→21:13)
[2017-04-22 06:08] LABS: Glucose,Whole Blood 105 mg/dL (75-99)
--- NOTE | 2017-04-22 08:50 | P.PN ---
Subjective The patient reports actually feeling fairly significantly better than yesterday. Her pain is under much better control. She may have passed gas this morning and does feel thirsty. She has not been up and out of bed at this point but denies any other signs of hypovolemia at this time. She had some fever and chills during the blood transfusion but her temperature is normal at this time and she is asymptomatic. Objective - Vital Signs Vital signs: Vital Signs Temp 98.6 F 04/22/17 07:46 Pulse 106 H 04/22/17 07:46 Resp 18 04/22/17 07:46 BP 115/60 04/22/17 07:46 Pulse Ox 92 L 04/22/17 07:46 Intake & Output 04/21/17 04/22/17 04/22/17 18:59 06:59 18:59 Intake Total 2239 1290 620 Output Total 600 Balance 2239 690 620 Weight 92 kg Intake: IV 2119 770 Sodium Chloride 0.9% 1, 1120 770 000 ml @ 140 mls/hr IV . Q7H9M [facility] Rx#:[id number] Sodium Chloride 0.9% 1, 999 000 ml @ 999 mls/hr IV . Q1H1M ONE Rx#:[id number] Intake, IV Titration 0 Amount Lactated Ringers 1,000 ml 0 @ 100 mls/hr IV .Q10H [facility] Rx#:[id number] Oral 120 Blood Product 520 620 Rc As-1 Unit 0 310 [id number] Rc Pheresis 2 As3 Unit 260 [id number] Output: Urine 600 Other: Voiding Method Indwelling Catheter Indwelling Catheter # Bowel Movements 0 - Exam In general, this is a well-developed, well-nourished white female in no acute distress. Her mood and affect appear significantly improved from yesterday. Her abdomen is nondistended, soft, significantly softer than previous examinations, with minimal tenderness throughout the entire abdomen including the bilateral upper quadrants. There is no guarding or rebound. There are no palpable masses, hepatosplenomegaly, or hernias. Her extremities without any cyanosis, clubbing, or edema and are nontender to palpation bilaterally. - Labs CBC & Chem 7: 04/21/17 20:08 04/21/17 13:42 Labs: Abnormal Lab Results - Last 24 Hours (Table) 04/21/17 04/21/17 04/21/17 Range/Units 13:42 13:42 13:45 WBC 13.1 H (3.8-10.6) k/uL RBC 2.39 L (3.80-5.40) m/uL Hgb 7.3 L D (11.4-16.0) gm/dL Hct 21.6 L (34.0-46.0) % Neutrophils # 9.6 H (1.3-7.7) k/uL Sodium 136 L (137-145) mmol/L Glucose 106 H (74-99) mg/dL POC Glucose (mg/dL) (75-99) mg/dL Calcium 7.6 L (8.4-10.2) mg/dL Crossmatch See Detail 04/21/17 04/21/17 04/21/17 Range/Units 16:21 16:41 20:08 WBC 12.7 H 11.7 H (3.8-10.6) k/uL RBC 2.35 L 2.10 L (3.80-5.40) m/uL Hgb 7.0 L* 6.4 L* (11.4-16.0) gm/dL Hct 21.1 L 18.7 L* (34.0-46.0) % Neutrophils # (1.3-7.7) k/uL Sodium (137-145) mmol/L Glucose (74-99) mg/dL POC Glucose (mg/dL) 123 H (75-99) mg/dL Calcium (8.4-10.2) mg/dL Crossmatch 04/21/17 04/22/17 Range/Units 20:42 06:06 WBC (3.8-10.6) k/uL RBC (3.80-5.40) m/uL Hgb (11.4-16.0) gm/dL Hct (34.0-46.0) % Neutrophils # (1.3-7.7) k/uL Sodium (137-145) mmol/L Glucose (74-99) mg/dL POC Glucose (mg/dL) 115 H 105 H (75-99) mg/dL Calcium (8.4-10.2) mg/dL Crossmatch Assessment and Plan (1) Dysfunctional uterine bleeding Status: Acute (2) Dysmenorrhea Status: Acute Plan: The findings on CAT scan and her declining hemoglobin indicates that she did have an ongoing intra-abdominal bleed. She was transfused 2 units of packed red blood cells overnight and her follow-up hemoglobin is pending at this time. Given her significantly improved appearance and lack of symptomatology, I am hopeful that her hemoglobin will have stabilized now on its own and no further surgery will be required. She will have her follow-up hemoglobin after transfusion done this morning and a follow-up to be done around noon. Should that be stable, it will be repeated in the late afternoon. She is currently nothing by mouth and advance of possible return to surgery at which time we would likely perform diagnostic laparoscopy to remove clot and examine for any potential bleeding sites. These findings were discussed at length with she and her significant other. Her Jolly catheter remains in place at this time until she is otherwise deemed stable. I have encouraged her to get up and attempt ambulate some today as this has not been done since the time of surgery.
[2017-04-22 08:51] LABS: CH 29.9; CHCM 33.4; HCT 23.8 % (34.0-46.0); HDW 3.13; MCH 30.3 pg (25.0-35.0); MCHC 33.7 g/dL (31.0-37.0); MCV 89.9 fL (80.0-100.0); Mean Platelet Volume 6.6; RBC 2.64 m/uL (3.80-5.40); RDW 13.1 % (11.5-15.5); WBC 11.3 k/uL (3.8-10.6)
[2017-04-22 08:58] LABS: ALT 16 U/L (9-52); AST 12 U/L (14-36); Alkaline Phosphatase 38 U/L (38-126); Anion Gap 4 mmol/L; Blood Urea Nitrogen 10 mg/dL (7-17); Calcium 7.5 mg/dL (8.4-10.2); Carbon Dioxide 27 mmol/L (22-30); Chloride 107 mmol/L (98-107); Glucose 85 mg/dL (74-99); Non-African American GFR(MDRD) >60 (>60 ml/min/1.73 sqM); Potassium 3.8 mmol/L (3.5-5.1); Sodium 138 mmol/L (137-145); Total Bilirubin 0.5 mg/dL (0.2-1.3); Total Protein 4.7 g/dL (6.3-8.2)
[2017-04-22] MEDS: SENNOSIDES-DOCUSATE SODIUM 1 EACH TAB PO SCH ×2 (09:41→21:47)
[2017-04-22] MEDS: METOCLOPRAMIDE 5 MG/ML 2 ML VIAL IVP PRN ×2 (09:43→18:33)
[2017-04-22 10:59] LABS: % Iron Saturation 18.2 % (20-50)
[2017-04-22 11:41] LABS: Hemoglobin A1C 5.2 % (4.2-6.1)
[2017-04-22 11:51] LABS: Glucose,Whole Blood 95 mg/dL (75-99)
--- NOTE | 2017-04-22 13:04 | P.PN ---
Subjective Principal diagnosis: patient was seen and examined in follow up of her abd pain and intraabdominal bleeding post op 46-year-old female with no significant past medical history she presented to the hospital for an elective vaginal hysterectomy. Patient had long standing history of irregular menstrual cycle and dysmenorrhea. She underwent endometrial ablation back in November 2016 however since that time she continued to have vaginal bleeding which was suspicious for adenomyosis. Patient was further evaluated by her [facility]NCHRONIZER doctor and they both agreed on hysterectomy as the patient has expressed no interest in having more kids. Patient is POD#2 post vaginal hysterectomy, no immediate complication was noted , however, she started developing abd pain on POD#1 along with shallow breathing and pleuritic chest pain (primary team workup included positive d dimer, negative CTA of the chest and negative duplex venous US of the lower extremities), further workup revealed possibility of intra-abdominal bleeding with dropping hemoglobin. patient was transfused overnight with 2 units of blood , however nursing home through the second unit patient developed some fever and chills, and the transfusion was held, further workup showed no compatibility issues with the unit of blood transfused. Today patient seen and examined, she continues to be NPO, reports some abd pain but improved compared to yesterday, no nausea or vomiting, no fevers this morning, no bowel movement but passing gasses, patient continues to have a fox catheter in place. she continues to be on aggressive IV fluid hydration. Objective - Vital Signs Vital signs: Vital Signs Temp 98.7 F 04/22/17 11:36 Pulse 121 H 04/22/17 11:36 Resp 18 04/22/17 11:36 BP 122/61 04/22/17 11:36 Pulse Ox 94 L 04/22/17 11:36 Intake & Output 04/21/17 04/22/17 04/22/17 18:59 06:59 18:59 Intake Total 2239 1290 620 Output Total 600 Balance 2239 690 620 Weight 92 kg Intake: IV 2119 770 Sodium Chloride 0.9% 1, 1120 770 000 ml @ 140 mls/hr IV . Q7H9M [facility] Rx#:[id number] Sodium Chloride 0.9% 1, 999 000 ml @ 999 mls/hr IV . Q1H1M [facility] Rx#:[id number] Intake, IV Titration 0 Amount Lactated Ringers 1,000 ml 0 @ 100 mls/hr IV .Q10H [facility] Rx#:[id number] Oral 120 Blood Product 520 620 Rc As-1 Unit 0 310 [id number] Rc Pheresis 2 As3 Unit 260 [id number] Output: Urine 600 Other: Voiding Method Indwelling Catheter Indwelling Catheter Indwelling Catheter # Bowel Movements 0 - Exam Constitutional: vital signs stable, Not in acute distress, pleasant, conversant Lungs: Clear to auscultation bilaterally, clear to percussion, normal respiratory effort no use of accessory muscles Cardiovascular: Regular rate and rhythm, no murmurs, no gallops, no rubs, no peripheral leg edema Gastrointestinal: abd is soft and not distended, Bowel sounds positive, no rebound tenderness, but continues to have diffuse abd tenderness to deep palpation. no palpable hepatosplenomegally, no abdominal wall hernias Extremities: No digital cyanosis or clubbing, peripheral pulses palpable and equal over bilateral radial arteries and dorsalis pedis artery, no calf muscle tenderness Psych: Alert, oriented to place, person and time labs reviewed - Labs CBC & Chem 7: 04/22/17 13:27 04/22/17 08:15 Labs: Abnormal Lab Results - Last 24 Hours (Table) 04/21/17 04/21/17 04/21/17 Range/Units 13:42 13:42 13:45 WBC 13.1 H (3.8-10.6) k/uL RBC 2.39 L (3.80-5.40) m/uL Hgb 7.3 L D (11.4-16.0) gm/dL Hct 21.6 L (34.0-46.0) % Neutrophils # 9.6 H (1.3-7.7) k/uL Sodium 136 L (137-145) mmol/L Glucose 106 H (74-99) mg/dL POC Glucose (mg/dL) (75-99) mg/dL Calcium 7.6 L (8.4-10.2) mg/dL TIBC (265-497) ug/dL % Saturation (20-50) % AST (14-36) U/L Total Protein (6.3-8.2) g/dL Albumin (3.5-5.0) g/dL Crossmatch See Detail 04/21/17 04/21/17 04/21/17 Range/Units 16:21 16:41 20:08 WBC 12.7 H 11.7 H (3.8-10.6) k/uL RBC 2.35 L 2.10 L (3.80-5.40) m/uL Hgb 7.0 L* 6.4 L* (11.4-16.0) gm/dL Hct 21.1 L 18.7 L* (34.0-46.0) % Neutrophils # (1.3-7.7) k/uL Sodium (137-145) mmol/L Glucose (74-99) mg/dL POC Glucose (mg/dL) 123 H (75-99) mg/dL Calcium (8.4-10.2) mg/dL TIBC (265-497) ug/dL % Saturation (20-50) % AST (14-36) U/L Total Protein (6.3-8.2) g/dL Albumin (3.5-5.0) g/dL Crossmatch 04/21/17 04/22/17 04/22/17 Range/Units 20:42 06:06 08:15 WBC (3.8-10.6) k/uL RBC (3.80-5.40) m/uL Hgb (11.4-16.0) gm/dL Hct (34.0-46.0) % Neutrophils # (1.3-7.7) k/uL Sodium (137-145) mmol/L Glucose (74-99) mg/dL POC Glucose (mg/dL) 115 H 105 H (75-99) mg/dL Calcium 7.5 L (8.4-10.2) mg/dL TIBC (265-497) ug/dL % Saturation (20-50) % AST 12 L (14-36) U/L Total Protein 4.7 L (6.3-8.2) g/dL Albumin 2.7 L (3.5-5.0) g/dL Crossmatch 04/22/17 04/22/17 Range/Units 08:15 08:19 WBC 11.3 H (3.8-10.6) k/uL RBC 2.64 L (3.80-5.40) m/uL Hgb 8.0 L D (11.4-16.0) gm/dL Hct 23.8 L (34.0-46.0) % Neutrophils # (1.3-7.7) k/uL Sodium (137-145) mmol/L Glucose (74-99) mg/dL POC Glucose (mg/dL) (75-99) mg/dL Calcium (8.4-10.2) mg/dL TIBC 258 L (265-497) ug/dL % Saturation 18.2 L (20-50) % AST (14-36) U/L Total Protein (6.3-8.2) g/dL Albumin (3.5-5.0) g/dL Crossmatch Assessment and Plan (1) Abdominal pain Status: Acute (2) Postoperative anemia due to acute blood loss Status: Acute (3) Lactic acidosis Status: Acute (4) D-dimer, elevated Status: Acute (5) DVT prophylaxis Status: Acute (6) Hyperglycemia Status: Acute Plan: again abd pain is most likely secondary to intra-abdominal bleed post operatively, SYNCHRONIZER is aware and following up closely regarding the need for surgical intervention continue with serial hemoglobin and transfuse as needed for Hgb <7 or symptomatic anemia today hemoglobin has raised appropriately post transfusion Abdominal pain is most likely secondary to postoperative however check acute abdominal series x-ray to rule out air leaks secondary to surgery leukocytosis, reactive to acute bleed and post op DVT PPX with SCDs, due to inta-abdominal bleed iron studies does not reflect the true levels as it was done post transfusion once patient stable , i would recommend startin PO IROn as outpatient close monitoring of vital sings and hemoglobin level, patient might require surgical intervention, will defer to SYNCHRONIZER Time with Patient: Greater than 30
[2017-04-22 13:44] LABS: Basophils % (A) 0 %; CH 31.1; CHCM 35.7; Eosinophils # (A) 0.2 k/uL (0-0.7); Eosinophils % (A) 2 %; HCT 24.3 % (34.0-46.0); HDW 3.19; HGB 8.4 gm/dL (11.4-16.0); Luc # (Auto) 0.08; Luc % (Auto) 1; Lymphocytes # (A) 1.4 k/uL (1.0-4.8); Lymphocytes % (A) 12 %; MCH 30.2 pg (25.0-35.0); MCHC 34.4 g/dL (31.0-37.0); MCV 87.6 fL (80.0-100.0); Mean Platelet Volume 7.8; Monocytes # (A) 0.7 k/uL (0-1.0); Monocytes % (A) 6 %; Neutrophils # (A) 9.5 k/uL (1.3-7.7); Neutrophils % (A) 80 %; RBC 2.77 m/uL (3.80-5.40); RDW 13.6 % (11.5-15.5); WBC (Perox) 12.09
[2017-04-22 16:29] LABS: Glucose,Whole Blood 102 mg/dL (75-99)
[2017-04-22] MEDS: ACETAMINOPHEN TAB 500 MG TAB PO PRN (18:00)
--- NOTE | 2017-04-22 18:26 | XR ---
EXAMINATION TYPE: XR chest 2V DATE OF EXAM: 04/22/2017 COMPARISON: NONE HISTORY: Short of breath TECHNIQUE: Frontal and lateral views of the chest are obtained. FINDINGS: There is some blunting of costophrenic angles. There is patchy linear density at the lung bases. There is mild pulmonary congestion. Heart is probably enlarged. There are chest leads. IMPRESSION: Bilateral pleural effusions with basilar pulmonary infiltrates and atelectasis. There is some mild pulmonary congestion without overt heart failure.
[2017-04-22 21:02] LABS: Glucose,Whole Blood 107 mg/dL (75-99)
[2017-04-22 22:07] LABS: Basophils % (A) 0 %; CH 30.1; CHCM 33.8; Eosinophils # (A) 0.1 k/uL (0-0.7); Eosinophils % (A) 1 %; HCT 22.6 % (34.0-46.0); HDW 3.09; HGB 7.9 gm/dL (11.4-16.0); Luc # (Auto) 0.15; Luc % (Auto) 1; Lymphocytes # (A) 1.8 k/uL (1.0-4.8); Lymphocytes % (A) 15 %; MCH 31.1 pg (25.0-35.0); MCHC 34.8 g/dL (31.0-37.0); MCV 89.3 fL (80.0-100.0); Mean Platelet Volume 6.6; Monocytes # (A) 0.8 k/uL (0-1.0); Monocytes % (A) 7 %; Neutrophils # (A) 8.7 k/uL (1.3-7.7); Neutrophils % (A) 76 %; RBC 2.53 m/uL (3.80-5.40); WBC 11.5 k/uL (3.8-10.6); WBC (Perox) 11.55
[2017-04-22] MEDS ORDERED: SODIUM CHLORIDE 0.9% 1,000 ML IV SCH (23:45)
[2017-04-23] MEDS: ACETAMINOPHEN TAB 500 MG TAB PO PRN ×4 (01:10→22:02)
[2017-04-23 05:42] LABS: Glucose,Whole Blood 89 mg/dL (75-99)
[2017-04-23 05:54] LABS: Basophils % (A) 0 %; CH 31.1; CHCM 34.7; Eosinophils # (A) 0.2 k/uL (0-0.7); Eosinophils % (A) 2 %; HCT 23.3 % (34.0-46.0); HDW 3.09; HGB 7.8 gm/dL (11.4-16.0); Luc # (Auto) 0.12; Luc % (Auto) 1; Lymphocytes # (A) 1.5 k/uL (1.0-4.8); Lymphocytes % (A) 15 %; MCH 30.3 pg (25.0-35.0); MCHC 33.7 g/dL (31.0-37.0); MCV 90.1 fL (80.0-100.0); Mean Platelet Volume 6.9; Monocytes # (A) 0.6 k/uL (0-1.0); Monocytes % (A) 6 %; Neutrophils # (A) 7.7 k/uL (1.3-7.7); Neutrophils % (A) 77 %; RBC 2.58 m/uL (3.80-5.40); RDW 13.5 % (11.5-15.5); WBC (Perox) 9.94
[2017-04-23 06:01] LABS: ALT 22 U/L (9-52); AST 35 U/L (14-36); Alkaline Phosphatase 43 U/L (38-126); Anion Gap 6 mmol/L; Blood Urea Nitrogen 8 mg/dL (7-17); Calcium 7.7 mg/dL (8.4-10.2); Carbon Dioxide 22 mmol/L (22-30); Chloride 107 mmol/L (98-107); Glucose 82 mg/dL (74-99); Non-African American GFR(MDRD) >60 (>60 ml/min/1.73 sqM); Potassium 3.4 mmol/L (3.5-5.1); Sodium 135 mmol/L (137-145); Total Bilirubin 0.6 mg/dL (0.2-1.3); Total Protein 4.8 g/dL (6.3-8.2)
[2017-04-23] MEDS: SODIUM CHLORIDE 0.9% 1,000 ML IV SCH (06:17)
[2017-04-23] MEDS: INSULIN LISPRO (humaLOG) 300 UNIT/3 ML VIAL SQ SCH ×4 (06:21→21:56)
[2017-04-23] MEDS: SENNOSIDES-DOCUSATE SODIUM 1 EACH TAB PO SCH ×2 (08:29→20:02)
--- NOTE | 2017-04-23 11:04 | P.PN ---
Subjective The patient reports feeling significantly better today. She still has pain when up and ambulatory. She does report flatus and she is tolerating some solids by mouth. No difficulty with liquids. She has been up and able to be some and has no signs or symptoms of orthostasis. She denies any significant vaginal bleeding. Objective - Vital Signs Vital signs: Vital Signs Temp 97.3 F L 04/23/17 08:20 Pulse 99 04/23/17 08:20 Resp 18 04/23/17 08:20 BP 102/62 04/23/17 08:20 Pulse Ox 98 04/23/17 08:20 Intake & Output 04/22/17 04/23/17 04/23/17 18:59 06:59 18:59 Intake Total 1740 270 Balance 1740 270 Weight 92 kg Intake: IV 1120 270 Sodium Chloride 0.9% 1, 120 000 ml @ 20 mls/hr IV . Q24H [facility] Rx#:[id number] Sodium Chloride 0.9% 1, 1120 150 000 ml @ 50 mls/hr IV . Q20H [facility] Rx#:[id number] Blood Product 620 Rc As-1 Unit 310 [id number] Other: Voiding Method Toilet Toilet # Voids 2 - Exam In general, this is a well-developed, well-nourished white female in no acute distress. Her abdomen is nondistended, has normal active bowel sounds, soft, nontender, and without any palpable masses, hepatosplenomegaly, or hernias. Her extremities are without any cyanosis, clubbing, or edema and are nontender to palpation. - Labs CBC & Chem 7: 04/23/17 05:41 04/23/17 05:41 Labs: Abnormal Lab Results - Last 24 Hours (Table) 04/22/17 04/22/17 04/22/17 Range/Units 08:19 13:27 16:26 WBC 12.0 H (3.8-10.6) k/uL RBC 2.77 L (3.80-5.40) m/uL Hgb 8.4 L (11.4-16.0) gm/dL Hct 24.3 L (34.0-46.0) % Neutrophils # 9.5 H (1.3-7.7) k/uL Sodium (137-145) mmol/L Potassium (3.5-5.1) mmol/L POC Glucose (mg/dL) 102 H (75-99) mg/dL Calcium (8.4-10.2) mg/dL TIBC 258 L (265-497) ug/dL % Saturation 18.2 L (20-50) % Total Protein (6.3-8.2) g/dL Albumin (3.5-5.0) g/dL 04/22/17 04/22/17 04/23/17 Range/Units 21:01 21:03 05:41 WBC 11.5 H (3.8-10.6) k/uL RBC 2.53 L 2.58 L (3.80-5.40) m/uL Hgb 7.9 L 7.8 L (11.4-16.0) gm/dL Hct 22.6 L 23.3 L (34.0-46.0) % Neutrophils # 8.7 H (1.3-7.7) k/uL Sodium (137-145) mmol/L Potassium (3.5-5.1) mmol/L POC Glucose (mg/dL) 107 H (75-99) mg/dL Calcium (8.4-10.2) mg/dL TIBC (265-497) ug/dL % Saturation (20-50) % Total Protein (6.3-8.2) g/dL Albumin (3.5-5.0) g/dL 04/23/17 Range/Units 05:41 WBC (3.8-10.6) k/uL RBC (3.80-5.40) m/uL Hgb (11.4-16.0) gm/dL Hct (34.0-46.0) % Neutrophils # (1.3-7.7) k/uL Sodium 135 L (137-145) mmol/L Potassium 3.4 L (3.5-5.1) mmol/L POC Glucose (mg/dL) (75-99) mg/dL Calcium 7.7 L (8.4-10.2) mg/dL TIBC (265-497) ug/dL % Saturation (20-50) % Total Protein 4.8 L (6.3-8.2) g/dL Albumin 2.7 L (3.5-5.0) g/dL Assessment and Plan (1) Dysfunctional uterine bleeding Status: Acute (2) Dysmenorrhea Status: Acute Plan: I will start her on tramadol to see if we can find a more effective oral pain medication. Additionally we will Hep-Lock her IV and I continued to encourage her to ambulate in the halls routinely. She can be transferred off this floor from my perspective. I discussed her case with the internal medicine staff and he has opted order an echocardiogram as well as to try to correct some of her electrolyte concerns for which she is otherwise at this time asymptomatic. As regards discharge planning, I will anticipate her discharge home tomorrow morning.
[2017-04-23] MEDS ORDERED: traMADol 50 MG TAB PO PRN (11:05)
[2017-04-23 12:12] LABS: Glucose,Whole Blood 99 mg/dL (75-99)
[2017-04-23] MEDS ORDERED: POTASSIUM CHLORIDE ORAL LIQUID 40 MEQ/30 ML CUP PO ONE (13:00)
--- NOTE | 2017-04-23 13:04 | P.PN ---
Subjective Principal diagnosis: Dysfunctional vaginal bleeding Post Operative ,Day 3 : 46-year-old female with no significant past medical history she presented to the hospital for an elective vaginal hysterectomy. Patient had long standing history of irregular menstrual cycle and dysmenorrhea. She underwent endometrial ablation back in November 2016 however since that time she continued to have vaginal bleeding which was suspicious for adenomyosis. Patient was further evaluated by her [facility] doctor and they both agreed on hysterectomy She had pleuritic chest pain on day #1 Post Op. workup included positive d dimer, negative CTA of the chest and negative duplex venous US of the lower extremities She had vaginal bleeding with ? intra-abdominal bleeding with dropping hemoglobin. The patient was transfused overnight with 2 units of blood, however [facility] through the second unit patient developed some fever and chills, and the transfusion was held, further workup showed no compatibility issues with the unit of blood transfused. She had less pain and the bleeding stopped today, the chest x-ray showed bilateral pleural effusions and interstitial edema consistent with possible congestive heart failure and volume overload status. The patient did not complain of any shortness of breath orthopnea or paroxysmal nocturnal dyspnea or leg swelling or leg pain. Exam showed had excessive IV hydration over the last 24 hours Other complaints offered by the patient Objective - Vital Signs Vital signs: Vital Signs Temp 97.3 F L 04/23/17 08:20 Pulse 99 04/23/17 08:20 Resp 18 04/23/17 08:20 BP 102/62 04/23/17 08:20 Pulse Ox 98 04/23/17 08:20 Intake & Output 04/22/17 04/23/17 04/23/17 18:59 06:59 18:59 Intake Total 1740 270 Balance 1740 270 Weight 92 kg Intake: IV 1120 270 Sodium Chloride 0.9% 1, 120 000 ml @ 20 mls/hr IV . Q24H [facility] Rx#:[id number] Sodium Chloride 0.9% 1, 1120 150 000 ml @ 50 mls/hr IV . Q20H [facility] Rx#:[id number] Blood Product 620 Rc As-1 Unit 310 [id number] Other: Voiding Method Toilet Toilet # Voids 2 - Constitutional Constitutional Comment(s): Patient had conjunctival without pallor. No respiratory distress or tachypnea, icterus or cyanosis . General appearance: Present: average body habitus, cooperative, no acute distress - EENT Eyes: Present: EOMI, PERRLA, normal appearance ENT: Present: hearing grossly normal, normal oropharynx Ears: bilateral: normal - Neck Details: Supple neck with JV distention. No lymphadenopathy or thyromegaly or masses Carotids: bilateral: upstroke normal, bruit absent Thyroid: negative: normal size - Respiratory Respiratory: negative: diminished, dullness, rales, rhonchi, wheezing, prolonged expiration, prolonged inspiration (Clear chest) - Cardiovascular Rhythm: regular Heart sounds: normal: S1, S2 Abnormal Heart Sounds: Present: systolic murmur. Absent: diastolic murmur, rub , S3 Gallop, S4 Gallop, click, other - Murmur systolic murmur (1) Type: holo Location: apex Grade: II/ Radiation: axilla - Gastrointestinal Gastrointestinal Comment(s): No Tenderness or masses or organomegaly appreciated General gastrointestinal: Present: normal bowel sounds, soft - Genitourinary Genitourinary Comment(s): Vagina exam not done see as per [employer] P[facility] No visible vagina bleeding - Integumentary Integumentary: Present: normal. Absent: calor, cellulitis, cyanotic, decreased turgor, flushed, jaundiced, normal turgor, pale, rash, ulcer - Neurologic Neurologic Comment(s): Normal power , Reflexes and sensory system of all extremities Nonfocal exam Neurologic: Present: CNII-XII intact - Musculoskeletal Musculoskeletal: Present: gait normal, strength equal bilaterally - Psychiatric Psychiatric: Present: A&O x's 3, appropriate affect, intact judgment & insight - Allied health notes Allied health notes reviewed: nursing - Labs CBC & Chem 7: 04/23/17 05:41 04/23/17 05:41 Labs: Abnormal Lab Results - Last 24 Hours (Table) 04/22/17 04/22/17 04/22/17 Range/Units 13:27 16:26 21:01 WBC 12.0 H (3.8-10.6) k/uL RBC 2.77 L (3.80-5.40) m/uL Hgb 8.4 L (11.4-16.0) gm/dL Hct 24.3 L (34.0-46.0) % Neutrophils # 9.5 H (1.3-7.7) k/uL Sodium (137-145) mmol/L Potassium (3.5-5.1) mmol/L POC Glucose (mg/dL) 102 H 107 H (75-99) mg/dL Calcium (8.4-10.2) mg/dL Total Protein (6.3-8.2) g/dL Albumin (3.5-5.0) g/dL 04/22/17 04/23/17 04/23/17 Range/Units 21:03 05:41 05:41 WBC 11.5 H (3.8-10.6) k/uL RBC 2.53 L 2.58 L (3.80-5.40) m/uL Hgb 7.9 L 7.8 L (11.4-16.0) gm/dL Hct 22.6 L 23.3 L (34.0-46.0) % Neutrophils # 8.7 H (1.3-7.7) k/uL Sodium 135 L (137-145) mmol/L Potassium 3.4 L (3.5-5.1) mmol/L POC Glucose (mg/dL) (75-99) mg/dL Calcium 7.7 L (8.4-10.2) mg/dL Total Protein 4.8 L (6.3-8.2) g/dL Albumin 2.7 L (3.5-5.0) g/dL Assessment and Plan (1) D-dimer, elevated Narrative/Plan: The patient had completed negative workup for DVT by negative Duplex venous study and negative workup for pulmonary embolism by a negative chest CTA Etiology is most likely related to menorrhagia DVT prophylaxis initiated Status: Ruled-out (2) DVT prophylaxis Status: Acute (3) Dysfunctional uterine bleeding Narrative/Plan: Day # 3 post operative hysterectomy complicated by post operative bleeding resulting in severe anemia requiring blood transfusion Status: Acute (4) Hyperglycemia Narrative/Plan: Blood sugar is under control Status: Chronic (5) Postoperative anemia due to acute blood loss Narrative/Plan: The hemoglobin is stable at 7.8 with normoactive vagina bleeding We'll continue to monitor CBC Status: Acute (6) CHF (congestive heart failure) Narrative/Plan: Volume overload status excess IV fluids and blood transfusions as well as possibility of valvular heart disease with a presence of a systolic murmur of mitral valve regurgitation Check Pro BNP and EChocardiogram Obtain a Cardiology Consultation D/W Dr Dumont Status: Acute (7) Hypokalemia Narrative/Plan: Low serum potassium of 3.4 due to nutritional etiology Will check sMagnesium Replace with KCl 40 meq PO now Repeat BMP in AM Status: Acute (8) Murmur, cardiac Narrative/Plan: Systolic murmur of MR No Clicks , No H/O Rheumatic fever Will order an Echocardiogram Status: Acute Plan: Workup congestive heart failure Cardiology consultation Stop IV fluids Replace potassium and magnesium if low Echocardiogram Consider IV Lasix AM Labs and chest x-ray Time with Patient: Less than 30
[2017-04-23 16:46] LABS: Glucose,Whole Blood 108 mg/dL (75-99)
[2017-04-23] MEDS ORDERED: FUROSEMIDE 10 MG/ML 2 ML VIAL IV STA (18:31)
[2017-04-23 20:39] LABS: Glucose,Whole Blood 128 mg/dL (75-99)
[2017-04-23] MEDS: METOCLOPRAMIDE 5 MG/ML 2 ML VIAL IVP PRN (22:02)
[2017-04-23] MEDS: ALPRAZolam 0.5 MG TAB PO PRN (22:03)
[2017-04-24 05:18] VITALS: RESP 16
[2017-04-24 05:54] LABS: CH 31.3; CHCM 34.8; HCT 26.6 % (34.0-46.0); HDW 3.14; HGB 8.9 gm/dL (11.4-16.0); MCH 30.3 pg (25.0-35.0); MCHC 33.4 g/dL (31.0-37.0); MCV 90.5 fL (80.0-100.0); Mean Platelet Volume 7.3; RBC 2.94 m/uL (3.80-5.40); RDW 14.6 % (11.5-15.5); WBC 10.1 k/uL (3.8-10.6)
[2017-04-24 06:02] LABS: Glucose,Whole Blood 95 mg/dL (75-99)
[2017-04-24 06:09] LABS: Potassium 4.2 mmol/L (3.5-5.1)
[2017-04-24] MEDS: INSULIN LISPRO (humaLOG) 300 UNIT/3 ML VIAL SQ SCH ×2 (06:26→12:21)
--- NOTE | 2017-04-24 07:08 | XR ---
EXAMINATION TYPE: XR chest 2V DATE OF EXAM: 04/24/2017 COMPARISON: Chest x-ray from 2 days ago. HISTORY: CHF per order. TECHNIQUE: Frontal and lateral views of the chest are obtained. FINDINGS: There is persistent bibasilar opacity consistent with small bilateral pleural effusions an d associated bibasilar atelectasis and/or infiltrate. Improvement as noted from prior. Upper lungs re main clear without pneumothorax. The cardiac silhouette size is within normal limits. The osseous s tructures are intact. IMPRESSION: Improving small bilateral pleural effusions with associated bibasilar atelectasis and/or infiltrate.
[2017-04-24 08:10] VITALS: PULSE 87
[2017-04-24 08:12] VITALS: BP 121/66; TEMP 98
[2017-04-24] MEDS: ACETAMINOPHEN TAB 500 MG TAB PO PRN (08:16)
--- NOTE | 2017-04-24 08:59 | P.CRDCN ---
<Dolly Jarrell E - Last Filed: 04/24/17 09:00> History of Present Illness Consult date: 04/24/17 Requesting physician: Raymond Thibodeaux Consult reason: chest pain Chief complaint: Chest pain History of present illness: This is a pleasant 46-year-old female with no documented history of hypertension, gestational diabetes history, no hyperlipidemia, prior smoker, who initially presented to the hospital with significant vaginal bleeding. Approximately 4 months ago she did have an ablation procedure performed, since then she's had significant bleeding. While in the hospital on this admission she underwent a hysterectomy. Postoperatively the patient developed some chest pain which she describes as a sharp pain that worsens with deep breathing. This has been intermittent since her surgery. And also the reason that we are consulted. CTA of the chest was performed which was negative for pulmonary embolism. No EKG performed telemetry strip show sinus rhythm to sinus tachycardia with no acute change. Echocardiogram with Doppler study has been ordered. Blood pressure 120/70 with a heart rate in the 80s, afebrile. 97% on room air. Hemoglobin 8.9, potassium 4.2, BNP level 1560. Patient has received blood transfusion as well as IV fluids, was given a one-time dose of IV Lasix. Denies any chest discomfort this morning, no difficulty in breathing. Anticipating possible discharge home today. Past Medical History Past Medical History: Cancer Additional Past Medical History / Comment(s): HAVING SPOTTING AND CRAMPING SINCE ABLATION, HX OF CERVICAL CA post LEEP , STATES TAKES HCTZ FOR BLOATING NO HTN ISSUES, Gestational diabetes History of Any Multi-Drug Resistant Organisms: None Reported Past Surgical History: Orthopedic Surgery, Tubal Ligation Additional Past Surgical History / Comment(s): KNEE ARTHROSCOPY; MULTIPLE CIRCLAGE; ABLATION WITH NOVASURE Past Anesthesia/Blood Transfusion Reactions: No Reported Reaction Past Psychological History: No Psychological Hx Reported Smoking Status: Former smoker Past Alcohol Use History: Occasional Additional Past Alcohol Use History / Comment(s): QUIT SMOKING 2005, SMOKED 1PPD FROM TEENS Past Drug Use History: None Reported - Past Family History Mother Family Medical History: No Reported History Additional Family Medical History / Comment(s): grandmother with skin cancer, grandfather with heart disease Medications and Allergies Home Medications Medication Instructions Recorded Confirmed Type Hydrochlorothiazide [Hydrodiuril] 12.5 mg PO DAILY 12/07/16 04/21/17 History Ibuprofen [Motrin] 800 mg PO Q8HR PRN 12/07/16 04/21/17 History Vitamin E 1,000 unit PO DAILY 12/07/16 04/21/17 History Allergies Allergy/AdvReac Type Severity Reaction Status Date / Time SURGICAL SCRUB Allergy Rash/Hives Uncoded 04/20/17 15:30 Physical Exam Vitals: Vital Signs Temp Pulse Resp BP BP Pulse Ox 04/24/17 08:00 98.0 F 87 16 121/66 04/24/17 07:58 87 16 04/24/17 04:00 97.5 F L 78 16 127/61 97 04/23/17 20:08 97.9 F 90 18 123/69 98 04/23/17 16:00 85 18 107/58 100 04/23/17 12:00 97.5 F L 93 18 118/66 95 Intake and Output 04/23/17 04/24/17 04/24/17 22:59 06:59 14:59 Intake Total 260 0 Balance 260 0 Intake: IV 160 0 Sodium Chloride 0.9% 1, 160 0 000 ml @ 20 mls/hr IV . Q24H [facility] Rx#:[id number] Oral 100 Other: Voiding Method Toilet Toilet # Voids 3 # Bowel Movements 0 Weight 77.9 kg 77.9 kg Patient Weight 04/25/17 06:59 Weight 77.9 kg PHYSICAL EXAMINATION: HEENT: Head is atraumatic, normocephalic. Pupils equal, round. Neck is supple. There is no elevated jugular venous pressure. HEART EXAMINATION: Heart S1, S2 soft systolic murmur is heard. CHEST EXAMINATION: Lungs are clear to auscultation and precussion. No chest wall tenderness is noted on palpation or with deep breathing. ABDOMEN: Soft, nontender. Bowel sounds are heard. No organomegaly noted. EXTREMITIES: 2+ peripheral pulses with no evidence of peripheral edema and no calf tenderness noted. NEUROLOGIC patient is awake, alert and oriented -3. . Results 04/24/17 05:33 04/24/17 05:33 CBC 04/24/17 Range/Units 05:33 WBC 10.1 (3.8-10.6) k/uL RBC 2.94 L (3.80-5.40) m/uL Hgb 8.9 L (11.4-16.0) gm/dL Hct 26.6 L (34.0-46.0) % Plt Count 259 (150-450) k/uL Comprehensive Metabolic Panel 04/23/17 04/24/17 Range/Units 12:58 05:33 Sodium 138 (137-145) mmol/L Potassium 3.6 4.2 (3.5-5.1) mmol/L Chloride 105 (98-107) mmol/L Carbon Dioxide 27 (22-30) mmol/L Current Medications Generic Name Dose Route Start Last Admin Trade Name Freq PRN Reason Stop Dose Admin Acetaminophen 1,000 mg 04/22/17 17:43 04/24/17 08:16 Tylenol Tab PO 1,000 mg Q6HR PRN Administration Fever and/ or MILD Pain Hydrocodone Bitart/Acetaminophen 1 each 04/21/17 05:50 04/21/17 06:09 Ferguson 5-325 PO 1 each Q4HR PRN Administration MODERATE TO SEVERE Pain Alprazolam 1 mg 04/21/17 05:51 04/23/17 22:03 Xanax PO 1 mg TID PRN Administration Anxiety Diphenhydramine HCl 25 mg 04/20/17 09:30 Benadryl IVP Q6HR PRN Itching Ibuprofen 600 mg 04/20/17 09:30 Motrin PO Q6HR PRN Mild Discomfort Insulin Human Lispro 0 unit 04/21/17 12:30 04/24/17 06:26 Humalog SQ Not Given ACHS [facility] Protocol Lidocaine HCl 0.1 ml 04/20/17 05:52 04/20/17 07:58 .Xylocaine 1% Inj (10mg/Ml) For Iv Start INTRADERMA 0.1 ml PER PROTOCOL PRN Administration IV Start Metoclopramide HCl 10 mg 04/20/17 09:30 04/23/17 22:02 Reglan IVP 10 mg Q6HR PRN Administration Nausea or Vomiting Morphine Sulfate 0.5 mg 04/21/17 05:02 04/21/17 07:54 Morphine Sulfate (Inj) IVP 0.5 mg Q2H PRN Administration Pain/Discomfort Naloxone HCl 0.2 mg 04/20/17 09:33 Narcan IV Q2M PRN Opioid Reversal Ondansetron HCl 4 mg 04/21/17 05:06 Zofran IVP Q6HR PRN Nausea And Vomiting Senna/Docusate Sodium 2 each 04/20/17 21:00 04/23/17 20:02 Senokot-S PO 2 each BID [facility] Administration Simethicone 80 mg 04/20/17 09:30 Mylicon Chew PO ACHS PRN Bloating Tramadol HCl 50 mg 04/23/17 11:05 04/24/17 07:03 Ultram PO 50 mg QID PRN Administration Pain Intake and Output 04/23/17 04/24/17 04/24/17 22:59 06:59 14:59 Intake Total 260 0 Balance 260 0 Intake: IV 160 0 Sodium Chloride 0.9% 1, 160 0 000 ml @ 20 mls/hr IV . Q24H [facility] Rx#:[id number] Oral 100 Other: Voiding Method Toilet Toilet # Voids 3 # Bowel Movements 0 Weight 77.9 kg 77.9 kg Patient Weight 04/25/17 06:59 Weight 77.9 kg 04/24/17 05:33 04/24/17 05:33 EKG Interpretations (text) Not performed. Assessment and Plan Plan: Assessment and plan #1 dysfunctional uterine bleeding status post hysterectomy, complicated by postoperative bleeding and severe anemia requiring blood transfusion #2 chest pain, pleuritic in nature. elevated d-dimer, CT of the chest negative for PE troponin negative. #3 congestive heart failure, likely secondary to volume overload from excessive IV fluids and broad transfusion, IV Lasix given. Plan We will obtain an echocardiogram with Doppler study. We'll also obtain an EKG. The patient's pain is very atypical in nature, pleuritic. From cardiology's perspective, if the echocardiogram with Doppler study and EKG are normal, she may be able to be discharged home. Further recommendations to follow. DNP note has been reviewed, I agree with a documented findings and plan of care. Patient was seen and examined. <Jonnie Hendrix - Last Filed: 04/24/17 11:26> Physical Exam Vitals: Vital Signs Temp Pulse Resp BP BP Pulse Ox 04/24/17 08:00 98.0 F 87 16 121/66 04/24/17 07:58 87 16 04/24/17 04:00 97.5 F L 78 16 127/61 97 04/23/17 20:08 97.9 F 90 18 123/69 98 04/23/17 16:00 85 18 107/58 100 04/23/17 12:00 97.5 F L 93 18 118/66 95 Intake and Output 04/23/17 04/24/17 04/24/17 22:59 06:59 14:59 Intake Total 260 0 300 Balance 260 0 300 Intake: IV 160 0 Sodium Chloride 0.9% 1, 160 0 000 ml @ 20 mls/hr IV . Q24H [facility] Rx#:[id number] Oral 100 300 Other: Voiding Method Toilet Toilet # Voids 3 # Bowel Movements 0 Weight 77.9 kg 77.9 kg Patient Weight 04/25/17 06:59 Weight 77.9 kg Results 04/24/17 05:33 04/24/17 05:33 CBC 04/24/17 Range/Units 05:33 WBC 10.1 (3.8-10.6) k/uL RBC 2.94 L (3.80-5.40) m/uL Hgb 8.9 L (11.4-16.0) gm/dL Hct 26.6 L (34.0-46.0) % Plt Count 259 (150-450) k/uL Comprehensive Metabolic Panel 04/23/17 04/24/17 Range/Units 12:58 05:33 Sodium 138 (137-145) mmol/L Potassium 3.6 4.2 (3.5-5.1) mmol/L Chloride 105 (98-107) mmol/L Carbon Dioxide 27 (22-30) mmol/L Current Medications Generic Name Dose Route Start Last Admin Trade Name Freq PRN Reason Stop Dose Admin Acetaminophen 1,000 mg 04/22/17 17:43 04/24/17 08:16 Tylenol Tab PO 1,000 mg Q6HR PRN Administration Fever and/ or MILD Pain Hydrocodone Bitart/Acetaminophen 1 each 04/21/17 05:50 04/21/17 06:09 Ferguson 5-325 PO 1 each Q4HR PRN Administration MODERATE TO SEVERE Pain Alprazolam 1 mg 04/21/17 05:51 04/23/17 22:03 Xanax PO 1 mg TID PRN Administration Anxiety Diphenhydramine HCl 25 mg 04/20/17 09:30 Benadryl IVP Q6HR PRN Itching Ibuprofen 600 mg 04/20/17 09:30 Motrin PO Q6HR PRN Mild Discomfort Insulin Human Lispro 0 unit 04/21/17 12:30 04/24/17 06:26 Humalog SQ Not Given ACHS [facility] Protocol Lidocaine HCl 0.1 ml 04/20/17 05:52 04/20/17 07:58 .Xylocaine 1% Inj (10mg/Ml) For Iv Start INTRADERMA 0.1 ml PER PROTOCOL PRN Administration IV Start Metoclopramide HCl 10 mg 04/20/17 09:30 04/23/17 22:02 Reglan IVP 10 mg Q6HR PRN Administration Nausea or Vomiting Morphine Sulfate 0.5 mg 04/21/17 05:02 04/21/17 07:54 Morphine Sulfate (Inj) IVP 0.5 mg Q2H PRN Administration Pain/Discomfort Naloxone HCl 0.2 mg 04/20/17 09:33 Narcan IV Q2M PRN Opioid Reversal Ondansetron HCl 4 mg 04/21/17 05:06 Zofran IVP Q6HR PRN Nausea And Vomiting Senna/Docusate Sodium 2 each 04/20/17 21:00 04/24/17 09:34 Senokot-S PO Not Given BID [facility] Simethicone 80 mg 04/20/17 09:30 Mylicon Chew PO ACHS PRN Bloating Tramadol HCl 50 mg 04/23/17 11:05 04/24/17 07:03 Ultram PO 50 mg QID PRN Administration Pain Intake and Output 04/23/17 04/24/17 04/24/17 22:59 06:59 14:59 Intake Total 260 0 300 Balance 260 0 300 Intake: IV 160 0 Sodium Chloride 0.9% 1, 160 0 000 ml @ 20 mls/hr IV . Q24H [facility] Rx#:[id number] Oral 100 300 Other: Voiding Method Toilet Toilet # Voids 3 # Bowel Movements 0 Weight 77.9 kg 77.9 kg Patient Weight 04/25/17 06:59 Weight 77.9 kg 04/24/17 05:33 04/24/17 05:33
[2017-04-24] MEDS: SENNOSIDES-DOCUSATE SODIUM 1 EACH TAB PO SCH (09:34)
--- NOTE | 2017-04-24 09:42 | ECHOF ---
Referral Reason:murmur,chf MEASUREMENTS -------- HEIGHT: 160.0 cm WEIGHT: 91.6 kg BP: 102/62 RVIDd: 2.7 cm (< 3.3) IVSd: 1.0 cm (0.6 - 1.1) LVIDd: 4.3 cm (3.9 - 5.3) LVPWd: 1.1 cm (0.6 - 1.1) EDV(Teich): 83 ml IVSs: 1.4 cm LVIDs: 2.5 cm LVPWs: 1.5 cm %IVS Thck: 41 % ESV(Teich): 22 ml EF(Teich): 74 % %FS: 42 % SV(Teich): 61 ml LALs A4C: 5.0 cm LAAs A4C: 15.9 cm LAESV A-L A4C: 42 ml LAESV MOD A4C: 39 ml LALs A2C: 5.2 cm LAAs A2C: 13.8 cm LAESV A-L A2C: 31 ml LAESV MOD A2C: 29 ml LAESV(A-L): 37 ml LAESV Index (A-L): 19.02 ml/m Ao Diam: 3.2 cm (2.0 - 3.7) AV Cusp: 1.8 cm (1.5 - 2.6) LA Diam: 3.3 cm (2.7 - 3.8) MV EXCURSION: 17.310 mm (> 18.000) MV EF SLOPE: 118 mm/s (70 - 150) EPSS: 0.4 cm MV E Edgar: 1.02 m/s MV DecT: 171 ms MV Dec [place]: 5.9 m/s MV A Edgar: 0.83 m/s MV E/A Ratio: 1.22 MV PHT: 50 ms E/E': 6.09 E': 0.17 m/s AV Vmax: 1.82 m/s AV maxP.36 mmHg TR Vmax: 2.62 m/s TR maxP.56 mmHg RAP: 5.00 mmHg RVSP: 32.56 mmHg FINDINGS -------- Sinus rhythm. This was a technically adequate study. Overall left ventricular systolic function is normal with, an EF between 65 - 70 %. The right ventricle is normal in size and function. Normal LA size by volume 22+/-6 ml/m2. The right atrium is normal in size. Aortic valve is trileaflet and is mildly thickened. There is no evidence of aortic regurgitation. There is no evidence of aortic stenosis. The mitral valve leaflets are mildly thickened. There is trace mitral regurgitation. Trace tricuspid regurgitation present. There is no evidence of pulmonary hypertension. The right ventricular systolic pressure, as measured by Doppler, is 32.56mmHg. The pulmonic valve is normal. The aortic root size is normal. Normal inferior vena cava with normal inspiratory collapse consistent with estimated right atrial pressure of 5 mmHg. The pericardium is normal. There is no pericardial effusion. CONCLUSIONS -------- 1. Sinus rhythm. 2. The right ventricular systolic pressure, as measured by Doppler, is 32.56mmHg. 3. The aortic root size is normal. 4. There is no pericardial effusion. 5. This was a technically adequate study. 6. Overall left ventricular systolic function is normal with, an EF between 65 - 70 %. 7. Normal LA size by volume 22+/-6 ml/m2. 8. Aortic valve is trileaflet and is mildly thickened. 9. The mitral valve leaflets are mildly thickened. 10. There is trace mitral regurgitation. 11. Trace tricuspid regurgitation present. 12. There is no evidence of pulmonary hypertension. DIRECTOR OF PROGRAM MANAGEMENT: Bob Lopez RDCS
--- NOTE | 2017-04-24 10:36 | P.DS ---
Providers Date of admission: 04/22/17 10:54 Expected date of discharge: 04/24/17 Attending physician: Raymond Thibodeaux Consults: 04/21/17 05:55 Consult Physician Routine Consulting Provider: Joselito Ott Consult Reason/Comments: medical management Do you want consulting provider notified?: Yes, Notify in am 04/23/17 18:46 Consult Physician Routine Consulting Provider: Jonnie Hendrix Consult Reason/Comments: chf Do you want consulting provider notified?: Yes Primary care physician: Stated None - Discharge Diagnosis(es) (1) Dysfunctional uterine bleeding Current Visit: Yes Status: Acute (2) Dysmenorrhea Current Visit: Yes Status: Acute (3) Post-op bleeding Current Visit: Yes Status: Acute Hospital Course: the patient is a 46-year-old 10 para [id number] who is well-known to me for a number of years. She presented approximate 4-6 months ago with complaint of significantly increasing bleeding and ultimately was taken to the operating room for a NovaSure endometrial ablation. Following the ablation, she continued to have some bleeding which was breakthrough nature but developed significantly increased dysmenorrhea. The thinking was that she may have developed hematoma and she was counseled regarding options. She opted to proceed with definitive therapy and was a candidate for vaginal hysterectomy. She was taken to the operating room where the hysterectomy was performed in an uncomplicated fashion. There was some small bleeding from the capsule of the left ovary which was cauterized intraoperatively. Late during the night of the day of surgery and early on the morning of postoperative day #1, the patient began to develop significant discomfort with tachypnea and tachycardia and significant pain. Because of her symptoms, she underwent a spiral CT at which time pulmonary embolus was ruled out. Her symptomatology D be transferred from her initial postoperative unit to selective care. She underwent serial blood count measurements on the following day which demonstrated a fairly significant drop off in hemoglobin which ultimately nadired at 6.4. She was otherwise relatively asymptomatic and her pain had improved. She was transfused 2 units of packed red blood cells and followed with continued observation. Internal medicine consultation had been sought upon transfer to selective care. A computed tomography scan of the abdomen and pelvis demonstrated findings consistent with intra-abdominal bleeding with blood seen in the paracolic gutters bilaterally as well as in the pelvis. Following the blood transfusion, the patient continued to improve from a symptomatic standpoint. Her hemoglobin increased to 8.4 mg/dL and, 12 hours later remained at 7.9 milligrams per deciliter. She was able to be up and ambulate. She reported positive flatus. She was tolerating solids and liquids. Her IV was then hep-locked. As internal medicine noted a small murmur, she underwent echocardiogram and cardiology consultation all of which was essentially negative though she was found with a tricuspid aortic valve. The small pulmonary effusions seen on CAT scan and on chest x-ray showed continued improvement. As all cardiac findings appeared negative, the patient was deemed stable for discharge on the morning of postoperative day #4. She did have significant difficulty with pain control during the process as she does not tolerate narcotics well. She had a trial of tramadol which appeared to be ineffective as well. Her pain is currently controlled with oral Tylenol. She was discharged home on postoperative day #4 to follow-up in my office in approximately 1-2 weeks for recheck and then 6 weeks routinely. She was instructed to call for any significantly increased fever, abdominal pain, GI complaints, vaginal bleeding, fever, or anything else that concerned her. She was additionally to have nothing in the vagina for at least 6 weeks time to include intercourse and to abstain from any heavy lifting over the same period of time. She was lastly instructed to abstain from driving until off of all pain medications, or 2 weeks' time, whichever came first. She understood her instructions and agrees to follow up as noted above. Discharge medications included only normal home medications which are minimal and [id number] pain medications as well. Discharge hemoglobin and hematocrit are 8.9 and 26.6 respectively. Pertinent Studies: #1. Spiral CT scan #2. CT of the abdomen and pelvis #3. Chest x-ray 3 #4. Echocardiogram Procedures: #1. Vaginal hysterectomy #2. Internal medicine consultation #3. Cardiology consultation Patient Condition at Discharge: Stable Plan - Discharge Summary New Discharge Prescriptions: No Action Hydrochlorothiazide [Hydrodiuril] 12.5 mg PO DAILY Ibuprofen [Motrin] 800 mg PO Q8HR PRN PRN Reason: Pain Vitamin E 1,000 unit PO DAILY Discharge Medication List Hydrochlorothiazide [Hydrodiuril] 12.5 mg PO DAILY 12/07/16 [History] Ibuprofen [Motrin] 800 mg PO Q8HR PRN 12/07/16 [History] Vitamin E 1,000 unit PO DAILY 12/07/16 [History] Follow up Appointment(s)/Referral(s): Raymond Thibodeaux MD [STAFF PHYSICIAN] - 2 Weeks Discharge Disposition: HOME SELF-CARE
[2017-04-24 11:46] LABS: Glucose,Whole Blood 147 mg/dL (75-99)
--- NOTE | 2017-04-24 13:15 | P.PN ---
Subjective Principal diagnosis: Dysfunctional vaginal bleeding Post Operative ,Day 4 : 46-year-old female with no significant past medical history she presented to the hospital for an elective vaginal hysterectomy. Patient had long standing history of irregular menstrual cycle and dysmenorrhea. She underwent endometrial ablation back in November 2016 however since that time she continued to have vaginal bleeding which was suspicious for adenomyosis. 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 workup included positive d dimer, negative CTA of the chest and negative duplex venous US of the lower extremities She had vaginal bleeding with ? intra-abdominal bleeding with dropping hemoglobin. Stable and no more bleeding The patient was transfused overnight with 2 units of blood, however fci through the second unit patient developed some fever and chills, and the transfusion was held, further workup showed no compatibility issues with the unit of blood transfused. She had less pain and the bleeding stopped today, the chest x-ray showed bilateral pleural effusions and interstitial edema consistent with possible congestive heart failure and volume overload status. The patient did not complain of any shortness of breath orthopnea or paroxysmal nocturnal dyspnea or leg swelling or leg pain. Exam showed had excessive IV hydration over the last 24 hours Today , Denied any SOB or chest pain or bleeding Hb is stable Dieuresed well with iv lasix ( Prpo BNP was high > 1500 Echo : Nl LV fx , trace MR Cardiology consultation noted Objective - Vital Signs Vital signs: Vital Signs Temp 98.0 F 04/24/17 08:00 Pulse 87 04/24/17 08:00 Resp 16 04/24/17 08:00 BP 121/66 04/24/17 08:00 Pulse Ox 96 04/24/17 12:26 Intake & Output 04/23/17 04/24/17 04/24/17 18:59 06:59 18:59 Intake Total 260 0 300 Balance 260 0 300 Weight 77.9 kg 77.9 kg Intake: IV 160 0 Sodium Chloride 0.9% 1, 160 0 000 ml @ 20 mls/hr IV . Q24H [facility] Rx#:[id number] Oral 100 300 Other: Voiding Method Toilet Toilet # Voids 3 # Bowel Movements 0 - Exam - Constitutional Constitutional Comment(s): Patient had conjunctival without pallor. No respiratory distress or tachypnea, icterus or cyanosis . General appearance: Present: average body habitus, cooperative, no acute distress - EENT Eyes: Present: EOMI, PERRLA, normal appearance ENT: Present: hearing grossly normal, normal oropharynx Ears: bilateral: normal - Neck Details: Supple neck with No JV distention. No lymphadenopathy or thyromegaly or masses Carotids: bilateral: upstroke normal, bruit absent Thyroid: negative: normal size - Respiratory Respiratory: negative: diminished, dullness, rales, rhonchi, wheezing, prolonged expiration, prolonged inspiration (Clear chest) - Cardiovascular Rhythm: regular Heart sounds: normal: S1, S2 Abnormal Heart Sounds: Present: systolic murmur. Absent: diastolic murmur, rub , S3 Gallop, S4 Gallop, click, other - Murmur systolic murmur (1) Type: holo Location: apex Grade: II/ Radiation: axilla - Gastrointestinal Gastrointestinal Comment(s): No Tenderness or masses or organomegaly appreciated General gastrointestinal: Present: normal bowel sounds, soft - Genitourinary Genitourinary Comment(s): Vagina exam not done see as per Copy Machine Operator No visible vagina bleeding - Integumentary Integumentary: Present: normal. Absent: calor, cellulitis, cyanotic, decreased turgor, flushed, jaundiced, normal turgor, pale, rash, ulcer - Neurologic Neurologic Comment(s): Normal power , Reflexes and sensory system of all extremities Nonfocal exam Neurologic: Present: CNII-XII intact - Musculoskeletal Musculoskeletal: Present: gait normal, strength equal bilaterally - Psychiatric Psychiatric: Present: A&O x's 3, appropriate affect, intact judgment & insight - Allied health notes Allied health notes reviewed: nursing - Labs CBC & Chem 7: 04/24/17 05:33 04/24/17 05:33 Labs: Abnormal Lab Results - Last 24 Hours (Table) 04/23/17 04/23/17 04/24/17 Range/Units 16:24 20:38 05:33 RBC 2.94 L (3.80-5.40) m/uL Hgb 8.9 L (11.4-16.0) gm/dL Hct 26.6 L (34.0-46.0) % POC Glucose (mg/dL) 108 H 128 H (75-99) mg/dL 04/24/17 Range/Units 11:45 RBC (3.80-5.40) m/uL Hgb (11.4-16.0) gm/dL Hct (34.0-46.0) % POC Glucose (mg/dL) 147 H (75-99) mg/dL Assessment and Plan (1) D-dimer, elevated Narrative/Plan: The patient had completed negative workup for DVT by negative Duplex venous study and negative workup for pulmonary embolism by a negative chest CTA Etiology is most likely related to menorrhagia DVT prophylaxis initiated Status: Resolved (2) DVT prophylaxis Status: Acute (3) Dysfunctional uterine bleeding Narrative/Plan: Day # 4 post operative hysterectomy complicated by post operative bleeding resulting in severe anemia requiring blood transfusion stable, resolved Status: Acute (4) Hyperglycemia Narrative/Plan: Blood sugar is under control Status: Chronic (5) Postoperative anemia due to acute blood loss Narrative/Plan: The hemoglobin is stable at 8.9 with no active vaginal bleeding OK for discharge today Status: Acute (6) CHF (congestive heart failure) Narrative/Plan: Volume overload status excess IV fluids and blood transfusions Pro BNP > 1500 CXR improved after lasix EChocardiogram : was normal Cardiology Consultation : reviewed , released home D/W Dr Dumont Status: Acute (7) Hypokalemia Narrative/Plan: Low serum potassium of 3.4 due to nutritional etiology corrected and within normal today sMagnesium was normal Status: Acute (8) Murmur, cardiac Narrative/Plan: Systolic murmur of MR No Clicks , No H/O Rheumatic fever Echocardiogram: Nl LV fx , No significant MR Status: Acute Plan: Ok for discharge today
== END 2017-04-24 14:23 | disposition home or self-care (01) | DRG 742 ==
LOC: OR 07:27 → 6PED 10:24 → OR 04-21 03:24 → 6SEL 04-21 05:16 → OBSVTOIN 04-22 10:54
PROVIDERS: ADMIT Obstetrics & Gynecology; ATTEND Obstetrics & Gynecology
PROC: 0UTC7ZZ Resection of Cervix, Via Natural or Artificial Opening (ICD-10-PCS; principal; 2017-04-20 09:25)
PROC: 0UT97ZZ Resection of Uterus, Via Natural or Artificial Opening (ICD-10-PCS; principal; 2017-04-20 09:25)
PROC: 30233N1 Transfusion of Nonautologous Red Blood Cells into Peripheral Vein, Percutaneous Approach (ICD-10-PCS; 2017-04-22)
DX: N92.0 Excessive and frequent menstruation with regular cycle (principal); D62 Acute posthemorrhagic anemia; E87.2 Acidosis; I50.9 Heart failure, unspecified; N99.820 Postprocedural hemorrhage of a genitourinary system organ or structure following a genitourinary system procedure; N93.8 Other specified abnormal uterine and vaginal bleeding; E87.6 Hypokalemia; Z79.899 Other long term (current) drug therapy; Z80.8 Family history of malignant neoplasm of other organs or systems; Z82.49 Family history of ischemic heart disease and other diseases of the circulatory system; Z85.41 Personal history of malignant neoplasm of cervix uteri; Z87.891 Personal history of nicotine dependence; Y83.6 Removal of other organ (partial) (total) as the cause of abnormal reaction of the patient, or of later complication, without mention of misadventure at the time of the procedure; R73.9 Hyperglycemia, unspecified
CPT/HCPCS: 71020; 71275; 74022; 74178; 80048; 80051; 80053; 81025; 82728; 83036; 83540; 83550; 83605; 83735; 83880; 84132; 85025; 85027; 85379; 85610; 86850; 86880; 86900; 86901; 86920; 88307; 93306; 93970; 94760